=== PATIENT | female | born 1935 | race Caucasian/White ===

== ENCOUNTER 2017-10-22 11:46 | Observation (INO) ==
--- NOTE | 2017-10-22 12:05 | Emergency Department Note ---
Disposition Clinical Impression: Chest pain Qualifiers: Chest pain type: unspecified Qualified Code(s): R07.9 - Chest pain, unspecified Dyspnea Qualifiers: Dyspnea type: unspecified Qualified Code(s): R06.00 - Dyspnea, unspecified Pacemaker complications Qualifiers: Encounter type: initial encounter Qualified Code(s): T82.9XXA - Unspecified complication of cardiac and vascular prosthetic device, implant and graft, initial encounter Disposition: Admitted As Inpatient Condition: Fair Referrals: Salomon Cazares [Primary Care Provider] - Forms: ED Satisfaction Letter Time of Disposition: 15:24 Recheck wound or abnormal lab - General Chief Complaint: ED Recheck/Abnormal Lab/Rx Stated Complaint: "abnormal labs" Time Seen by Provider: 10/22/17 12:01 Source: patient Mode of arrival: ambulatory Limitations: no limitations Nursing Notes Reviewed: Yes Vital Signs Reviewed: Yes - History of Present Illness HPI Narrative: Patient is an 82-year-old female with past medical history of hypertension, hyperlipidemia, diabetes, CHF. She presents today due to the elevated creatinine levels. She states that [facility] She says that she was [facility] around one week ago for UTI. She was recently discharged. She has been feeling generally weak, has had multiple falls but denies any dizziness or extremity weakness, has also had diarrhea over the past week but states that it has now resolved. She also did note some blood in her stool but states that it has also resolved within the past week. Denies any dysuria, hematuria, vaginal bleeding or discharge. Denies any focal numbness, tingling, weakness. She states that she had basic labs drawn today and was told that her creatinine level was elevated. She does have a history of CKD. Not currently on dialysis. She also does report chest pain and shortness of breath that have been intermittent over the past month, no worsening with exertion, described as a pressure in the center of her chest with no radiation, no associated sweating , nausea, vomiting when these episodes occur. She does have a history of COPD and CHF and wears 3 L nasal cannula chronically. Denies any productive cough, fevers, sputum production. - Related Data Home Medications Medication Instructions Recorded Confirmed Acetaminophen [Tylenol] 500 mg PO Q4H PRN 07/23/15 08/30/15 Allopurinol [Zyloprim 100 MG] 200 mg PO DAILY 07/23/15 08/30/15 Atorvastatin [Lipitor] 10 mg PO HS 07/23/15 08/30/15 Biotin 300 mcg PO DAILY 07/23/15 08/30/15 Buspirone HCl [Buspar] 10 mg PO TID 07/23/15 08/30/15 Calcium Carbonate/Vitamin D3 1 tab PO DAILY 07/23/15 08/30/15 [Calcium 500-Vit D3 400 Tablet] Cholecalciferol (Vitamin D3) 2,000 unit PO DAILY 07/23/15 08/30/15 [Vitamin D3] Diclofenac Sodium [Voltaren] 1 appl TP PRN PRN 07/23/15 08/30/15 Duloxetine HCl [Cymbalta] 120 mg PO DAILY 07/23/15 08/30/15 Ferrous Sulfate [Iron Supplement] 325 mg PO TID 07/23/15 08/30/15 Fluticasone Propionate Nasal 2 spr NS DAILY 07/23/15 08/30/15 [Flonase] Furosemide [Lasix] 20 mg PO BID 07/23/15 08/30/15 Gabapentin [Neurontin] 1,200 mg PO TID 07/23/15 08/30/15 Insulin Human Regular [HumuLIN R] 2 - 10 unit SQ TID 07/23/15 08/30/15 Insulin NPH, HUMAN [HumuLIN N] 50 unit SQ QAM 07/23/15 08/30/15 Ipratropium/Albuterol Neb [Duoneb] 3 ml IH Q4HR PRN 07/23/15 08/30/15 Lactulose 30 ml PO DAILY 07/23/15 08/30/15 Magnesium Hydroxide [Milk of 30 ml PO DAILY PRN 07/23/15 08/30/15 Magnesia] Metoprolol XL (24 HR) Succ [Toprol 25 mg PO DAILY 07/23/15 08/30/15 Xl] Oxybutynin Chloride [Ditropan Xl] 10 mg PO DAILY 07/23/15 08/30/15 Sennosides [Senna] 17.2 mg PO DAILY 07/23/15 08/30/15 Tizanidine HCl [Zanaflex] 4 mg PO TID PRN 07/23/15 08/30/15 cloNIDine HCl [CloNIDine HCl] 0.1 mg PO BID 07/23/15 08/30/15 Previous Rx's Medication Instructions Recorded DiphenhydraMINE [Benadryl] 25 mg PO Q6HR PRN #0 capsule 09/04/15 Insulin LISPRO [HumaLOG] 0 units SQ TIDAC vial 09/04/15 Insulin LISPRO [HumaLOG] 6 units SQ TIDWM vial 09/04/15 OxyCODONE Immed Rel [Roxicodone 5 10 mg PO Q6HR PRN #14 tablet 09/04/15 MG] Allergies Allergy/AdvReac Type Severity Reaction Status Date / Time codeine AdvReac See Verified 06/02/15 08:41 Comments tuberculin,PPD,multi-puncture AdvReac See Verified 08/30/15 16:23 Comments All systems ED: reviewed and negative except as stated. Constitutional: Denies: fever Past Medical History - Past Medical History Attestation: Yes The following information was validated with the patient. Source: patient Medical history: Reports: arthritis, CHF, COPD, coronary artery disease, diabetes, hyperlipidemia, hypertension, renal disease, other (Morbid obesity, bipolar, sleep apnea) Surgical history: Reports: appendectomy, cataract, herniorrhaphy, hysterectomy, knee replacement, pacemaker/AICD, other (intra-thecal pain pump insertion ) Psychiatric history: Reports: anxiety, bipolar - Social History Smoking Status: Never smoker Smokeless Tobacco Status: No Alcohol use: Reports: none Drug use: Reports: none Physical Exam - General Limitations: no limitations General appearance: alert, in no apparent distress - Head Head exam: atraumatic, normocephalic, normal inspection - Eye Eye exam: Present: normal appearance, PERRL, EOMI - ENT ENT exam: normal oropharynx, mucous membranes dry - Neck Neck exam: Present: normal inspection, full ROM, trachea midline - Chest Chest inspection: Present: normal inspection, symmetric chest wall rise - Respiratory Respiratory exam: Present: normal lung sounds bilaterally - Cardiovascular Cardiovascular exam: Present: regular rate, normal rhythm, normal heart sounds - Abdominal Exam Abdominal exam: Present: soft, tenderness (very mild bilateral LQ tenderness). Absent: distention, guarding, rebound, rigidity - Extremities Exam Extremities exam: Present: normal inspection, full ROM. Absent: tenderness, pedal edema - Neurological Exam Neurological exam: Present: alert, oriented X3 - Expanded Neurological Exam Cranial nerves: EOM function (II, III, IV, ): Normal, facial sensation (V): Normal, facial palsy (VII): Normal, spinal accessory function (XI): Normal, tongue deviation (XII): Normal Motor strength - LUE: 5/5 Motor strength - RUE: 5/5 Motor strength - LLE: 5/5 Motor strength - RLE: 5/5 Sensory exam upper extremity: light touch: Normal Sensory exam lower extremity: light touch: Normal Coma Scale Eye Opening: Spontaneous Coma Scale Motor Response: Obeys Commands Coma Scale Verbal Response: Oriented Coma Scale Total: 15 - Psychiatric Psychiatric exam: Present: normal affect, normal mood - Skin Skin exam: Present: warm, dry, intact, normal color Course Course Narrative: Will perform EKG, chest x-ray, troponin, basic labs, urinalysis. We will check his old records from [facility]. We will give the patient aspirin. We will consult nephrology wants labs come back. 14:00 patient labs show creatinine and chronic anemia near baseline for the patient. No major likely abnormality. Troponin negative. Chest x-ray negative for any acute cardio pulmonary process, there is some central vascular congestion. We got called into the room because of an episode of "v tach". However, it looks as though each QRS has a pacer spike beforehand and is at a rate of 100. She is having some chest discomfort and shortness of breath during this episode. This lasted for a few minutes and then pacer is no longer capturing and she is back at normal sinus rhythm with a rate between 50-60. Currently concern that pacer is not functioning correctly. 14:[address] Caputo. He recommended interrogating the pacemaker has been calling him back with results. He will act as consult to the patient if there are admitted. 15:[address] Caputo. According to and irrigation, there is no detection Sunday, there was a dissection on October 09 of under sensing and high rates. I discussed this again with Dr. Caputo and he is agreeable with admission here. Patient was accepted by Dr. Craven. Chest X-Ray 10/22/17 12:21 IMPRESSION: Cardiomegaly with central vascular congestion. D/ / Beni Gonsalez MD / Beni Gonsalez MD Interpreting Provider: Beni Gonsalez MD Vital Signs Temperature 98.6 F 10/22/17 11:56 Pulse Rate 62 10/22/17 11:56 Respiratory Rate 12 10/22/17 11:56 Blood Pressure 175/97 10/22/17 11:56 O2 Sat by Pulse Oximetry 99 10/22/17 11:56 Temperature 98.6 F 10/22/17 12:13 Pulse Rate 64 10/22/17 14:21 Respiratory Rate 14 10/22/17 14:21 Blood Pressure 159/76 10/22/17 14:21 O2 Sat by Pulse Oximetry 97 10/22/17 14:21 Oxygen Delivery Oxygen Delivery Room Air Recheck wound or abnormal lab - MDM Narrative Medical decision making narrative: Will perform EKG, chest x-ray, troponin, basic labs, urinalysis. We will check his old records from [facility]. We will give the patient aspirin. We will consult nephrology wants labs come back. 14:00 patient labs show creatinine and chronic anemia near baseline for the patient. No major likely abnormality. Troponin negative. Chest x-ray negative for any acute cardio pulmonary process, there is some central vascular congestion. We got called into the room because of an episode of "v tach". However, it looks as though each QRS has a pacer spike beforehand and is at a rate of 100. She is having some chest discomfort and shortness of breath during this episode. This lasted for a few minutes and then pacer is no longer capturing and she is back at normal sinus rhythm with a rate between 50-60. Currently concern that pacer is not functioning correctly. 14:[address] Cpauto. He recommended interrogating the pacemaker has been calling him back with results. He will act as consult to the patient if there are admitted. 15:[address] Caputo. According to and irrigation, there is no detection Sunday, there was a dissection on October 09 of under sensing and high rates. I discussed this again with Dr. Caputo and he is agreeable with admission here. Patient was accepted by Dr. Craven. - Medical Records Medical records reviewed: Yes I reviewed the patient's medical records. - Lab Data Lab results reviewed: Yes I reviewed the patient's lab results. Result diagrams: 10/22/17 12:26 10/22/17 12:26 Lab Results 10/22/17 10/22/17 10/22/17 Range/Units 12:19 12:26 12:26 WBC 13.6 H (4.3-11.1) K/mcL RBC 3.47 L (3.82-4.97) M/mcL Hgb 10.5 L (11.5-15.4) g/dL Hct 33.3 L (35.3-44.9) % MCV 96.0 (83.0-100.0) fL MCH 30.3 (28.0-33.3) pg MCHC 31.5 L (31.6-35.5) g/dL RDW 14.2 (11.5-14.5) % Plt Count 449 H (140-400) K/mcL MPV 8.7 L (9.4-12.4) fL Seg Neutrophils % 94.0 % Lymphocytes % 3.0 % Monocytes % 3.0 % Neutrophils # 12.8 H (1.6-8.9) K/mcL Lymphocytes # 0.4 L (0.6-4.6) K/mcL Monocytes # 0.4 (0.0-1.3) K/mcL Nucleated RBCs/100 WBC 0.1 H (0) /100 WBC Platelet Estimate Slight increase H (Normal) PT 24.9 H (9.4-12.1) Seconds INR 2.2 APTT 44.2 H (26.0-36.0) Seconds Sodium (136-145) mEq/L Potassium (3.5-5.1) mEq/L Chloride (98-107) mEq/L Carbon Dioxide (23-29) mEq/L BUN (8-23) mg/dL Creatinine (0.60-1.20) mg/dL Est GFR ( Amer) (> 60) Est GFR (Non-Af Amer) (> 60) BUN/Creatinine Ratio (6-26) Glucose (70-105) mg/dL Calculated Osmolality (280-300) Calcium (8.6-10.3) mg/dL Total Bilirubin (0.3-1.0) mg/dL Direct Bilirubin (0.0-0.2) mg/dL Indirect Bilirubin (0.0-1.2) mg/dL AST (13-39) Units/L ALT (7-52) Units/L Alkaline Phosphatase (34-104) Units/L Troponin I (< 0.04) ng/mL B-Natriuretic Peptide (Less than 100) pg/mL Serum Total Protein (6.4-8.9) g/dL Albumin (3.5-5.7) g/dL Globulin (2.4-3.5) g/dL Albumin/Globulin Ratio (1.1-2.2) Lipase (11-82) Units/L Urine Color Yellow (Yellow) Urine Clarity Clear (Clear) Urine pH 6.5 (5.0-8.0) pH Units Ur Specific [place] 1.006 L (1.010-1.025) Urine Protein Trace (Neg-Trace) mg/dL Urine Glucose (UA) Normal (Normal) mg/dL Urine Ketones Negative (Negative) mg/dL Urine Blood Trace H (Negative) Urine Nitrite Negative (Negative) Urine Bilirubin Negative (Negative) Urine Urobilinogen Normal (Normal) mg/dL Ur Leukocyte Esterase Negative (Negative) Urine Microscopic RBC 0-3 (0-3) per hpf Urine Microscopic WBC 0-3 (0-3) per hpf Ur Squamous Epith Cells Moderate H (None-Few) per lpf Urine Bacteria None Seen (None-Few) per hpf Hyaline Casts None Seen (None-Few) per lpf Ur Culture Indicated? NO (NO) 10/22/17 10/22/17 Range/Units 12:26 12:26 WBC (4.3-11.1) K/mcL RBC (3.82-4.97) M/mcL Hgb (11.5-15.4) g/dL Hct (35.3-44.9) % MCV (83.0-100.0) fL MCH (28.0-33.3) pg MCHC (31.6-35.5) g/dL RDW (11.5-14.5) % Plt Count (140-400) K/mcL MPV (9.4-12.4) fL Seg Neutrophils % % Lymphocytes % % Monocytes % % Neutrophils # (1.6-8.9) K/mcL Lymphocytes # (0.6-4.6) K/mcL Monocytes # (0.0-1.3) K/mcL Nucleated RBCs/100 WBC (0) /100 WBC Platelet Estimate (Normal) PT (9.4-12.1) Seconds INR APTT (26.0-36.0) Seconds Sodium 139 (136-145) mEq/L Potassium 4.1 (3.5-5.1) mEq/L Chloride 101 (98-107) mEq/L Carbon Dioxide 34 H (23-29) mEq/L BUN 24 H (8-23) mg/dL Creatinine 1.60 H (0.60-1.20) mg/dL Est GFR ( Amer) 38 L (> 60) Est GFR (Non-Af Amer) 31 L (> 60) BUN/Creatinine Ratio 15 (6-26) Glucose 163 H (70-105) mg/dL Calculated Osmolality 296 (280-300) Calcium 9.2 (8.6-10.3) mg/dL Total Bilirubin 0.3 (0.3-1.0) mg/dL Direct Bilirubin 0.1 (0.0-0.2) mg/dL Indirect Bilirubin 0.2 (0.0-1.2) mg/dL AST 17 (13-39) Units/L ALT 19 (7-52) Units/L Alkaline Phosphatase 95 (34-104) Units/L Troponin I < 0.03 (< 0.04) ng/mL B-Natriuretic Peptide 275 H (Less than 100) pg/mL Serum Total Protein 7.0 (6.4-8.9) g/dL Albumin 3.0 L (3.5-5.7) g/dL Globulin 4.0 H (2.4-3.5) g/dL Albumin/Globulin Ratio 0.8 L (1.1-2.2) Lipase 7 L (11-82) Units/L Urine Color (Yellow) Urine Clarity (Clear) Urine pH (5.0-8.0) pH Units Ur Specific Underwood (1.010-1.025) Urine Protein (Neg-Trace) mg/dL Urine Glucose (UA) (Normal) mg/dL Urine Ketones (Negative) mg/dL Urine Blood (Negative) Urine Nitrite (Negative) Urine Bilirubin (Negative) Urine Urobilinogen (Normal) mg/dL Ur Leukocyte Esterase (Negative) Urine Microscopic RBC (0-3) per hpf Urine Microscopic WBC (0-3) per hpf Ur Squamous Epith Cells (None-Few) per lpf Urine Bacteria (None-Few) per hpf Hyaline Casts (None-Few) per lpf Ur Culture Indicated? (NO) - Radiology Data Radiology results reviewed: Yes I reviewed the patient's radiology results. Chest X-Ray 10/22/17 12:21 IMPRESSION: Cardiomegaly with central vascular congestion. D/ / Beni Gonsalez MD / Beni Gonsalez MD Interpreting Provider: Beni Gonsalez MD - EKG Data EKG attestation: Yes I reviewed and interpreted this EKG. EKG results narrative: 10/22/17. Paced rhythm. Heart rate 63. PO2 90. QTC 458. No acute ST elevation or depression. S.B.A.R. - S.B.A.R. Situation: Demographics, MOA Background: Presenting Complaint, Relevant PMH, Meds, & Allergies Assessment: Vital Signs, Course and respsone to treatment, Exam Concerns, Patient/Family Expectation, Pertinant Lab Results Recommendation: Barrier(s) to disposition, Recommendation based on pending studies, treatments, or consults S.B.A.R. Report Given to: Dr. Craven
[2017-10-22] MEDS ORDERED: Aspirin 325 MG TABLET PO ONE (12:32)
[2017-10-22 12:42] LABS: Bilirubin,Urine Negative (Negative); Blood,Urine Trace (Negative); Clarity,Urine Clear (Clear); Color,Urine Yellow (Yellow); Glucose,Urine (UA) Normal (Normal); Ketones,Urine Negative (Negative); Leukocyte Esterase,Urine Negative (Negative); Nitrite,Urine Negative (Negative); PH,Urine 6.5 pH Units (5.0-8.0); Protein,Urine Trace mg/dL (Neg-Trace); Specific Gravity,Urine 1.006 (1.010-1.025); Urobilinogen,Urine Normal (Normal)
[2017-10-22 12:42] LABS: Hematocrit 33.3 % (35.3-44.9); Hemoglobin 10.5 g/dL (11.5-15.4); Mean Corpuscular HGB Conc 31.5 g/dL (31.6-35.5); Mean Corpuscular Hemoglobin 30.3 pg (28.0-33.3); Mean Platelet Volume 8.7 fL (9.4-12.4); Nucleated Red Blood Cells 0.1 /100 WBC (0); Platelet Count 449 K/mcL (140-400); Red Blood Count 3.47 M/mcL (3.82-4.97); Red Cell Distribution Width 14.2 % (11.5-14.5)
[2017-10-22 12:44] LABS: Bacteria,Urine None Seen per hpf (None-Few); Hyaline Casts,Urine None Seen per lpf (None-Few); RBC,Urine 0-3 per hpf (0-3); Squamous Epithelial Cell,Urine Moderate per lpf (None-Few); WBC,Urine 0-3 per hpf (0-3)
[2017-10-22 12:45] LABS: INR 2.2; Prothrombin Time 24.9 Seconds (9.4-12.1)
[2017-10-22 12:48] LABS: Activated Partial Thrombo Time 44.2 Seconds (26.0-36.0)
[2017-10-22 12:58] LABS: Troponin I < 0.03 ng/mL (< 0.04)
[2017-10-22 13:00] LABS: Alanine Aminotransferase 19 Units/L (7-52); Albumin/Globulin Ratio 0.8 (1.1-2.2); Alkaline Phosphatase 95 Units/L (34-104); Aspartate Amino Transferase 17 Units/L (13-39); BUN/Creatinine Ratio 15 (6-26); Bilirubin,Direct 0.1 mg/dL (0.0-0.2); Bilirubin,Indirect 0.2 mg/dL (0.0-1.2); Bilirubin,Total 0.3 mg/dL (0.3-1.0); Blood Urea Nitrogen 24 mg/dL (8-23); Calcium 9.2 mg/dL (8.6-10.3); Carbon Dioxide 34 mEq/L (23-29); Chloride 101 mEq/L (98-107); Glucose 163 mg/dL (70-105); Lipase 7 Units/L (11-82); Osmolality,Calculated 296 (280-300); Potassium 4.1 mEq/L (3.5-5.1); Sodium 139 mEq/L (136-145); eGFR For Non-African Americans 31 (> 60)
[2017-10-22 13:02] LABS: Lymphocytes # 0.4 K/mcL (0.6-4.6); Monocytes # 0.4 K/mcL (0.0-1.3); Neutrophils # 12.8 K/mcL (1.6-8.9)
[2017-10-22] MEDS ORDERED: *HR* FentaNYL (PF) 100 MCG/2 ML VIAL IVP ONE (13:44)
--- NOTE | 2017-10-22 15:23 | Emergency Department Note ---
Disposition Clinical Impression: Dysrhythmia, Dyspnea Disposition: Admitted As Inpatient Condition: Fair Referrals: Salomon Cazares [Non-Partnered Physician] - Forms: ED Satisfaction Letter General Adult HPI - General Chief complaint: ED Recheck/Abnormal Lab/Rx Stated complaint: "abnormal labs" Time Seen by Provider: 10/22/17 12:01 Source: patient Mode of arrival: ambulatory Limitations: no limitations Nursing Notes Reviewed: Yes Vital Signs Reviewed: Yes - History of Present Illness Pain Scale: 0 - Related Data Home Medications Medication Instructions Recorded Confirmed Acetaminophen [Tylenol] 500 mg PO Q4H PRN 07/23/15 08/30/15 Allopurinol [Zyloprim 100 MG] 200 mg PO DAILY 07/23/15 08/30/15 Atorvastatin [Lipitor] 10 mg PO HS 07/23/15 08/30/15 Biotin 300 mcg PO DAILY 07/23/15 08/30/15 Buspirone HCl [Buspar] 10 mg PO TID 07/23/15 08/30/15 Calcium Carbonate/Vitamin D3 1 tab PO DAILY 07/23/15 08/30/15 [Calcium 500-Vit D3 400 Tablet] Cholecalciferol (Vitamin D3) 2,000 unit PO DAILY 07/23/15 08/30/15 [Vitamin D3] Diclofenac Sodium [Voltaren] 1 appl TP PRN PRN 07/23/15 08/30/15 Duloxetine HCl [Cymbalta] 120 mg PO DAILY 07/23/15 08/30/15 Ferrous Sulfate [Iron Supplement] 325 mg PO TID 07/23/15 08/30/15 Fluticasone Propionate Nasal 2 spr NS DAILY 07/23/15 08/30/15 [Flonase] Furosemide [Lasix] 20 mg PO BID 07/23/15 08/30/15 Gabapentin [Neurontin] 1,200 mg PO TID 07/23/15 08/30/15 Insulin Human Regular [HumuLIN R] 2 - 10 unit SQ TID 07/23/15 08/30/15 Insulin NPH, HUMAN [HumuLIN N] 50 unit SQ QAM 07/23/15 08/30/15 Ipratropium/Albuterol Neb [Duoneb] 3 ml IH Q4HR PRN 07/23/15 08/30/15 Lactulose 30 ml PO DAILY 07/23/15 08/30/15 Magnesium Hydroxide [Milk of 30 ml PO DAILY PRN 07/23/15 08/30/15 Magnesia] Metoprolol XL (24 HR) Succ [Toprol 25 mg PO DAILY 07/23/15 08/30/15 Xl] Oxybutynin Chloride [Ditropan Xl] 10 mg PO DAILY 07/23/15 08/30/15 Sennosides [Senna] 17.2 mg PO DAILY 07/23/15 08/30/15 Tizanidine HCl [Zanaflex] 4 mg PO TID PRN 07/23/15 08/30/15 cloNIDine HCl [CloNIDine HCl] 0.1 mg PO BID 07/23/15 08/30/15 Previous Rx's Medication Instructions Recorded DiphenhydraMINE [Benadryl] 25 mg PO Q6HR PRN #0 capsule 09/04/15 Insulin LISPRO [HumaLOG] 0 units SQ TIDAC vial 09/04/15 Insulin LISPRO [HumaLOG] 6 units SQ TIDWM vial 09/04/15 OxyCODONE Immed Rel [Roxicodone 5 10 mg PO Q6HR PRN #14 tablet 09/04/15 MG] Allergies Allergy/AdvReac Type Severity Reaction Status Date / Time codeine AdvReac See Verified 06/02/15 08:41 Comments tuberculin,PPD,multi-puncture AdvReac See Verified 08/30/15 16:23 Comments Constitutional: Denies: fever Past Medical History - Past Medical History Medical history: Reports: arthritis, CHF, COPD, coronary artery disease, diabetes, hyperlipidemia, hypertension, renal disease, other (Morbid obesity, bipolar, sleep apnea) Surgical history: Reports: appendectomy, cataract, herniorrhaphy, hysterectomy, knee replacement, pacemaker/AICD, other (intra-thecal pain pump insertion ) Psychiatric history: Reports: anxiety, bipolar - Social History Smoking Status: Never smoker Smokeless Tobacco Status: No Alcohol use: Reports: none Drug use: Reports: none Physical Exam - General Limitations: no limitations General appearance: alert, in no apparent distress Course Vital Signs Temperature 98.6 F 10/22/17 11:56 Pulse Rate 62 10/22/17 11:56 Respiratory Rate 12 10/22/17 11:56 Blood Pressure 175/97 10/22/17 11:56 O2 Sat by Pulse Oximetry 99 08/20/18 11:56 Temperature 98.6 F 10/22/17 12:13 Pulse Rate 64 10/22/17 14:21 Respiratory Rate 14 10/22/17 14:21 Blood Pressure 159/76 10/22/17 14:21 O2 Sat by Pulse Oximetry 97 10/22/17 14:21 Oxygen Delivery Oxygen Delivery Room Air Medical Decision Making - Lab Data Result diagrams: 10/22/17 12:26 10/22/17 12:26 Lab Results 10/22/17 10/22/17 10/22/17 Range/Units 12:19 12:26 12:26 WBC 13.6 H (4.3-11.1) K/mcL RBC 3.47 L (3.82-4.97) M/mcL Hgb 10.5 L (11.5-15.4) g/dL Hct 33.3 L (35.3-44.9) % MCV 96.0 (83.0-100.0) fL MCH 30.3 (28.0-33.3) pg MCHC 31.5 L (31.6-35.5) g/dL RDW 14.2 (11.5-14.5) % Plt Count 449 H (140-400) K/mcL MPV 8.7 L (9.4-12.4) fL Seg Neutrophils % 94.0 % Lymphocytes % 3.0 % Monocytes % 3.0 % Neutrophils # 12.8 H (1.6-8.9) K/mcL Lymphocytes # 0.4 L (0.6-4.6) K/mcL Monocytes # 0.4 (0.0-1.3) K/mcL Nucleated RBCs/100 WBC 0.1 H (0) /100 WBC Platelet Estimate Slight increase H (Normal) PT 24.9 H (9.4-12.1) Seconds INR 2.2 APTT 44.2 H (26.0-36.0) Seconds Sodium (136-145) mEq/L Potassium (3.5-5.1) mEq/L Chloride (98-107) mEq/L Carbon Dioxide (23-29) mEq/L BUN (8-23) mg/dL Creatinine (0.60-1.20) mg/dL Est GFR ( Amer) (> 60) Est GFR (Non-Af Amer) (> 60) BUN/Creatinine Ratio (6-26) Glucose (70-105) mg/dL Calculated Osmolality (280-300) Calcium (8.6-10.3) mg/dL Total Bilirubin (0.3-1.0) mg/dL Direct Bilirubin (0.0-0.2) mg/dL Indirect Bilirubin (0.0-1.2) mg/dL AST (13-39) Units/L ALT (7-52) Units/L Alkaline Phosphatase (34-104) Units/L Troponin I (< 0.04) ng/mL B-Natriuretic Peptide (Less than 100) pg/mL Serum Total Protein (6.4-8.9) g/dL Albumin (3.5-5.7) g/dL Globulin (2.4-3.5) g/dL Albumin/Globulin Ratio (1.1-2.2) Lipase (11-82) Units/L Urine Color Yellow (Yellow) Urine Clarity Clear (Clear) Urine pH 6.5 (5.0-8.0) pH Units Ur Specific [place] 1.006 L (1.010-1.025) Urine Protein Trace (Neg-Trace) mg/dL Urine Glucose (UA) Normal (Normal) mg/dL Urine Ketones Negative (Negative) mg/dL Urine Blood Trace H (Negative) Urine Nitrite Negative (Negative) Urine Bilirubin Negative (Negative) Urine Urobilinogen Normal (Normal) mg/dL Ur Leukocyte Esterase Negative (Negative) Urine Microscopic RBC 0-3 (0-3) per hpf Urine Microscopic WBC 0-3 (0-3) per hpf Ur Squamous Epith Cells Moderate H (None-Few) per lpf Urine Bacteria None Seen (None-Few) per hpf Hyaline Casts None Seen (None-Few) per lpf Ur Culture Indicated? NO (NO) 10/22/17 10/22/17 Range/Units 12:26 12:26 WBC (4.3-11.1) K/mcL RBC (3.82-4.97) M/mcL Hgb (11.5-15.4) g/dL Hct (35.3-44.9) % MCV (83.0-100.0) fL MCH (28.0-33.3) pg MCHC (31.6-35.5) g/dL RDW (11.5-14.5) % Plt Count (140-400) K/mcL MPV (9.4-12.4) fL Seg Neutrophils % % Lymphocytes % % Monocytes % % Neutrophils # (1.6-8.9) K/mcL Lymphocytes # (0.6-4.6) K/mcL Monocytes # (0.0-1.3) K/mcL Nucleated RBCs/100 WBC (0) /100 WBC Platelet Estimate (Normal) PT (9.4-12.1) Seconds INR APTT (26.0-36.0) Seconds Sodium 139 (136-145) mEq/L Potassium 4.1 (3.5-5.1) mEq/L Chloride 101 (98-107) mEq/L Carbon Dioxide 34 H (23-29) mEq/L BUN 24 H (8-23) mg/dL Creatinine 1.60 H (0.60-1.20) mg/dL Est GFR ( Amer) 38 L (> 60) Est GFR (Non-Af Amer) 31 L (> 60) BUN/Creatinine Ratio 15 (6-26) Glucose 163 H (70-105) mg/dL Calculated Osmolality 296 (280-300) Calcium 9.2 (8.6-10.3) mg/dL Total Bilirubin 0.3 (0.3-1.0) mg/dL Direct Bilirubin 0.1 (0.0-0.2) mg/dL Indirect Bilirubin 0.2 (0.0-1.2) mg/dL AST 17 (13-39) Units/L ALT 19 (7-52) Units/L Alkaline Phosphatase 95 (34-104) Units/L Troponin I < 0.03 (< 0.04) ng/mL B-Natriuretic Peptide 275 H (Less than 100) pg/mL Serum Total Protein 7.0 (6.4-8.9) g/dL Albumin 3.0 L (3.5-5.7) g/dL Globulin 4.0 H (2.4-3.5) g/dL Albumin/Globulin Ratio 0.8 L (1.1-2.2) Lipase 7 L (11-82) Units/L Urine Color (Yellow) Urine Clarity (Clear) Urine pH (5.0-8.0) pH Units Ur Specific [place] (1.010-1.025) Urine Protein (Neg-Trace) mg/dL Urine Glucose (UA) (Normal) mg/dL Urine Ketones (Negative) mg/dL Urine Blood (Negative) Urine Nitrite (Negative) Urine Bilirubin (Negative) Urine Urobilinogen (Normal) mg/dL Ur Leukocyte Esterase (Negative) Urine Microscopic RBC (0-3) per hpf Urine Microscopic WBC (0-3) per hpf Ur Squamous Epith Cells (None-Few) per lpf Urine Bacteria (None-Few) per hpf Hyaline Casts (None-Few) per lpf Ur Culture Indicated? (NO) Attestation Statement - Attestation Attestation: I, Johnson Fall, examined this patient and my medical decision-making was reviewed with the [employer]/PA/Advanced Practice Nurse/Resident Physician. I agree with the documented findings, disposition and treatment plan as described except to the extent set forth below. 82-year-old female presents emergency Department with concerns of "abnormal labs ". Patient was sent to the emergency department by Dr. Vanegas get her for further evaluation of possible worsening renal failure. INR reevaluation the emergency department the patient complained about intermittent chest pain and shortness of breath however she did not state that it was significantly worse within the past 24 hours. Laboratory evaluation showed a creatinine of 1.6 which is actually better than her previous laboratory values. During a reevaluation in the emergency Department she became short of breath and had chest pain, on the monitor she had what appeared to be a ventricularly paced rhythm. Patient did not feel the pacemaker and also did not feel being defibrillated. EKG shows a definitive change in the rhythm, showing a wide complex QRS consistent with a ventricularly paced rhythm which then improved to her baseline EKG when her symptoms resolved. Resident, Dr. Cade, spoke with the african history professor, Dr. Caputo, regarding the patient's case and presentation who agreed with the plan for admission to the hospital for further care and evaluation.
[2017-10-22] MEDS ORDERED: Naloxone 0.4 MG/ML INJ IVP PRN ×2 (17:28→18:24)
--- NOTE | 2017-10-22 17:54 | Internal Med History&Physical ---
<SchenectadyEster - Last Filed: 10/22/17 17:52> Date of Encounter: 10/22/17 Time of Encounter: 17:40 Internal Medicine - H&P: HPI Chief complaint: abnormal labs, chest pain Admitted From: Long-term Nursing Facility Plans for Post Hospital Care: [facility] History of present illness: Ms. Latif is a 82 year old female with past medical history of morbid obesity, sleep apnea, chronic kidney disease stage III, diabetes, bipolar disorder, COPD , pacemaker. Patient presented to the emergency department from her [facility]. She was sent to see her prep person. Nephrology felt that her renal function was worsening and was sent to the emergency department for evaluation. While in the emergency department, she began having chest pain with associated shortness of breath, diaphoresis, and nausea. Patient denies currently and apparently is back to baseline. She states that within the last week she has been admitted to another [facility] hospital in [place], [place] for UTI and is still getting IM injections of antibiotic. Pt denies nausea, vomiting, current chest pain, shortness of breath, peripheral edema, abdominal pain, or dizziness. She reports global headaches times one month intermittently. Past Med Surg Social Fam HX - Past Medical History Medical history: arthritis, CHF, COPD, coronary artery disease, diabetes, hyperlipidemia, hypertension, renal disease, other (Morbid obesity, bipolar, sleep apnea) Additional medical history: acute renal failure, lumbar DDD, dementia, angina, neuropathy, anemia, anxiety/depression,. bipolar, schizophrenia, pacemaker, sleep apnea with CPAP, left breast nodule, pneumonia Psychiatric history: anxiety, bipolar - Past Surgical History Surgical History: appendectomy, cataract, herniorrhaphy, hysterectomy, knee replacement, pacemaker/AICD, other (intra-thecal pain pump insertion 07/23/15) Additional surgical history: pain pump - Social History Smoking Status: Never smoker Smokeless Tobacco Status: No Alcohol use: none Drug use: none - Family History Brother Hx Family Endocrine Disorder: Yes Internal Medicine - H&P: Meds Acetaminophen [Tylenol] 500 mg PO Q4H PRN 07/23/15 [History] Allopurinol [Zyloprim 100 MG] 200 mg PO DAILY 07/23/15 [History] Atorvastatin [Lipitor] 10 mg PO HS 07/23/15 [History] Biotin 300 mcg PO DAILY 07/23/15 [History] Buspirone HCl [Buspar] 10 mg PO BID 07/23/15 [History] Cholecalciferol (Vitamin D3) [Vitamin D3] 2,000 unit PO DAILY 07/23/15 [History] Fluticasone Propionate Nasal [Flonase] 2 spr NS DAILY 07/23/15 [History] Gabapentin [Neurontin] 300 mg PO TID 07/23/15 [History] Insulin Human Regular [HumuLIN R] 2 - 10 unit SQ TID 07/23/15 [History] Insulin NPH, HUMAN [HumuLIN N] 55 unit SQ QAM 07/23/15 [History] Ipratropium/Albuterol Neb [Duoneb] 3 ml IH Q4HR PRN 07/23/15 [History] Lactulose 30 ml PO DAILY 07/23/15 [History] Magnesium Hydroxide [Milk of Magnesia] 30 ml PO DAILY PRN 07/23/15 [History] Metoprolol XL (24 HR) Succ [Toprol Xl] 50 mg PO DAILY 07/23/15 [History] Sennosides [Senna] 17.2 mg PO DAILY 07/23/15 [History] cloNIDine HCl [CloNIDine HCl] 0.1 mg PO BID 07/23/15 [History] Bupropion HCl [Wellbutrin Xl] 300 mg PO DAILY 10/22/17 [History] Docusate Sodium [Dok] 200 mg PO DAILY 10/22/17 [History] Ertapenem [INVanz] 1,000 mg IM DAILY 10/22/17 [History] Oxybutynin Chloride [Ditropan Xl] 10 mg PO DAILY 10/22/17 [History] Rivaroxaban [Xarelto] 15 mg PO DAILY 10/22/17 [History] Torsemide [Demadex] 20 mg PO DAILY 10/22/17 [History] 3 Allergy/AdvReac Type Severity Reaction Status Date / Time codeine AdvReac See Verified 06/02/15 08:41 Comments tuberculin,PPD,multi-puncture AdvReac See Verified 08/30/15 16:23 Comments All Systems PM: A 10-system review of systems was performed and is negative for pertinent findings except as documented above in the HPI. - Constitutional Constitutional: falls, no anorexia, no chills, no excessive sweating, no night sweats, no weakness - EENT Eyes: no blurry vision, no change in vision, no loss of vision, no photophobia Ears: no decreased hearing, no tinnitus Nose, mouth and throat: no dry mouth, no nasal congestion, no nasal discharge, no nasal obstruction, no sinus pressure, no sore throat - Cardiovascular Cardiovascular ROS IM: chest pain, diaphoresis, dyspnea, no lightheadedness, no palpitations, no syncope - Respiratory Respiratory: dyspnea, dyspnea on exertion, no pain on inspiration, no chest congestion - Gastrointestinal Gastrointestinal: diarrhea, nausea, no loose stools, no vomiting - Genitourinary Genitourinary: no urinary frequency, no urinary hesitancy, no urinary incontinence, no urinary urgency - Musculoskeletal Musculoskeletal ROS IM: no muscle weakness, no numbness, no tingling - Integumentary Integumentary IM: no new lesions, no rash - Neurological Neurological ROS: headache(s), no dizziness, no memory loss, no numbness, no restless legs, no tingling - Constitutional Vitals: Temp Pulse Resp BP Pulse Ox 98.3 F 65 16 142/94 90 10/22/17 17:46 10/22/17 17:46 10/22/17 17:46 10/22/17 17:46 10/22/17 17:46 General appearance: Present: cooperative, A&O X 3, morbidly obese, pleasant, no acute distress, answers questions appropriately Exam: As above - Head Head exam: Present: atraumatic, normocephalic - Eye Eye exam: Present: EOMI, normal appearance, conjuntiva pink, sclera anicteric. Absent: nystagmus - Neck Neck exam general surgery: Present: supple, trachea midline. Absent: lymphadenopathy, normal inspection, tenderness - Respiratory Respiratory exam: Present: CTAB. Absent: accessory muscle use, chest wall tenderness, rales, respiratory distress, rhonchi, wheezes - Cardiovascular Cardiovascular exam: Present: RRR, +S1, +S2. Absent: diastolic murmur, gallop, rubs, systolic murmur - GI/Abdominal GI/Abdominal exam: Present: distended, normal bowel sounds, soft. Absent: hepatomegaly, tenderness - Extremities Exam Extremities exam: Present: normal capillary refill, normal inspection, warm, radial pulses palpable and symmetrical. Absent: calf tenderness, cyanotic, pedal edema, tenderness - Neurological Exam Neurological exam: Present: alert, oriented X3, no focal deficits. Absent: facial droop, speech deficit - Skin Skin exam: Present: dry, intact, normal color, warm. Absent: rash Internal Med - H&P Results - Labs CBC & Chem 7: 10/22/17 12:26 10/22/17 12:26 - Assessment and plan (1) Chest pain Current Visit: Yes Status: Acute Assessment and plan: Pt reports substernal chest pain with radiation to left breast, left mid axillary area with associated shortness of breath, diaphoresis, nausea. Pt states that pain resolved with "a shot", which apparently was Fentanyl. Per ER note pt reported SOB and non-radiating chest pain that has been intermittent for a month, without diaphoresis, nausea, or vomiting. Per primary RN, CONTRACT ATTORNEY states that pt had a 1.5 minute run of v-tach, pacemaker was found to be malfunctioning. Cardiology has been consulted and will see pt tomorrow. Pt denies chest pain or associated symptoms. EKG NSR Continue telemetry Cardiology consult tomorrow Tylenol for pain Continue FLOR Chan, Lipitor EKG in a.m. Trend troponins Qualifiers: Chest pain type: unspecified Qualified Code(s): R07.9 - Chest pain, unspecified (2) Headache Current Visit: Yes Status: Acute Assessment and plan: Pt reports global headache with nausea and vomiting for 1 month. She denies vision changes or dizziness, no neurological deficits. Pt reports that she recently had CT at hospital in [place], [place]. We need to try to obtain records. Tylenol for pain Qualifiers: Headache type: unspecified Headache chronicity pattern: acute headache Intractability: not intractable Qualified Code(s): R51 - Headache (3) Pacemaker complications Current Visit: Yes Status: Acute Assessment and plan: Plan as above. Cardiology to see tomorrow. Qualifiers: Encounter type: initial encounter Qualified Code(s): T82.9XXA - Unspecified complication of cardiac and vascular prosthetic device, implant and graft, initial encounter (4) Bipolar disorder Current Visit: Yes Status: Acute Assessment and plan: Continue Buspar and Wellbutrin Follow up with psychiatry and PCP as scheduled. Qualifiers: Active/Remission status: remission status unspecified Qualified Code(s): F31.9 - Bipolar disorder, unspecified (5) COPD (chronic obstructive pulmonary disease) Current Visit: Yes Status: Acute Assessment and plan: NO acute exacerbation. Lungs clear, diminished. Pt is at baseline 02 demand. Continue Duonebs and 02, titrate to maintain sats > 92% Qualifiers: COPD type: unspecified COPD Qualified Code(s): J44.9 - Chronic obstructive pulmonary disease, unspecified (6) DVT prophylaxis Current Visit: Yes Status: Acute Assessment and plan: Pt on Xarelto (7) Insulin-requiring or dependent type II diabetes mellitus Current Visit: Yes Status: Acute Assessment and plan: Continue SSI, accuchecks achs, diabetic/cardiac diet. No recent A1c. Will draw with morning labs. (8) Morbid obesity due to excess calories Current Visit: Yes Status: Chronic Assessment and plan: Encourage lifestyle modifications and increase exercise. (9) Sleep apnea Current Visit: Yes Status: Chronic Assessment and plan: Continue Bipap. Qualifiers: Sleep apnea type: obstructive Qualified Code(s): G47.33 - Obstructive sleep apnea (adult) (pediatric) (10) CKD (chronic kidney disease) stage 3, GFR 30-59 ml/min Current Visit: Yes Status: Chronic Assessment and plan: Pt was sent to ED from nephrology office for worsening renal function. , appears to be at pt's baseline. Avoid nephrotoxins Monitor labs (11) HTN (hypertension) Current Visit: Yes Status: Acute Assessment and plan: Chronic. HOme medications have been restarted. Monitor labs per admission orders. Qualifiers: Hypertension type: unspecified Qualified Code(s): I10 - Essential (primary ) hypertension - Time Spent With Patient Total time spent is greater than 50% in coordination of care (as documented) at patient's floor/unit and/or counseling patient: less than 15 minutes <Su Craven - Last Filed: 10/22/17 18:50> Date of Encounter: 10/22/17 Internal Medicine - H&P: HPI History of present illness: Ms. Latif is a 82 year old female All Systems PM: A 10-system review of systems was performed and is negative for pertinent findings except as documented above in the HPI. - Constitutional Vitals: Temp Pulse Resp BP Pulse Ox 98.3 F 65 16 142/94 90 10/22/17 17:46 10/22/17 17:46 10/22/17 17:46 10/22/17 17:46 10/22/17 17:46 Internal Med - H&P Results - Labs CBC & Chem 7: 10/22/17 12:26 10/22/17 12:26 - Assessment and plan (1) Morbid obesity due to excess calories Current Visit: Yes Status: Chronic (2) Sleep apnea Current Visit: Yes Status: Chronic Qualifiers: Sleep apnea type: obstructive Qualified Code(s): G47.33 - Obstructive sleep apnea (adult) (pediatric) (3) Bipolar disorder Current Visit: Yes Status: Acute Qualifiers: Active/Remission status: remission status unspecified Qualified Code(s): F31.9 - Bipolar disorder, unspecified (4) Insulin-requiring or dependent type II diabetes mellitus Current Visit: Yes Status: Acute (5) COPD (chronic obstructive pulmonary disease) Current Visit: Yes Status: Acute Qualifiers: COPD type: unspecified COPD Qualified Code(s): J44.9 - Chronic obstructive pulmonary disease, unspecified (6) DVT prophylaxis Current Visit: Yes Status: Acute (7) Chest pain Current Visit: Yes Status: Acute Qualifiers: Chest pain type: unspecified Qualified Code(s): R07.9 - Chest pain, unspecified (8) Pacemaker complications Current Visit: Yes Status: Acute Qualifiers: Encounter type: initial encounter Qualified Code(s): T82.9XXA - Unspecified complication of cardiac and vascular prosthetic device, implant and graft, initial encounter (9) Headache Current Visit: Yes Status: Acute Qualifiers: Headache type: unspecified Headache chronicity pattern: acute headache Intractability: not intractable Qualified Code(s): R51 - Headache (10) CKD (chronic kidney disease) stage 3, GFR 30-59 ml/min Current Visit: Yes Status: Chronic (11) HTN (hypertension) Current Visit: Yes Status: Acute Qualifiers: Hypertension type: unspecified Qualified Code(s): I10 - Essential (primary ) hypertension - Time Spent With Patient Total time spent is greater than 50% in coordination of care (as documented) at patient's floor/unit and/or counseling patient: - Attending Attestation I have seen and examined this pt independently. I have discussed with RETAIL SHIFT SUPERVISOR Ms Bright regarding the management plan. Agree with the documentation.
[2017-10-22] MEDS ORDERED: *HR* Dextrose 50 % in Water (Syg) 50 ML SYRINGE IVP PRN (18:30)
[2017-10-22] MEDS ORDERED: Dextrose Gel 15 GM/37.5 ML TUBE PO PRN ×2 (18:30)
[2017-10-22] MEDS ORDERED: D5% in Water 1,000 ML IVC PRN (18:30)
[2017-10-22] MEDS ORDERED: MOM Conc 10 ML UD.LIQ PO PRN (18:32)
[2017-10-22] MEDS: Insulin LISPRO 300 UNITS/3 ML VIAL SQ SCH (19:49)
[2017-10-22] MEDS ORDERED: Ipratropium/Albuterol Neb 3 ML IH PRN (20:00)
[2017-10-22] MEDS: Gabapentin 300 MG CAPSULE PO SCH (20:02)
[2017-10-22] MEDS: traMADol 50 MG TABLET PO PRN (20:02)
[2017-10-22] MEDS: cloNIDine HCl 0.1 MG TABLET PO SCH (20:03)
[2017-10-22] MEDS ORDERED: Insulin LISPRO 300 UNITS/3 ML VIAL SQ SCH (21:00)
[2017-10-22] MEDS: Acetaminophen 325 MG TABLET PO PRN (21:24)
[2017-10-23 02:10] LABS: Basophils # 0.1 K/mcL (0.0-0.2); Basophils % 0.4 %; Eosinophils # 0.4 K/mcL (0.0-0.6); Eosinophils % 2.7 %; Hematocrit 32.5 % (35.3-44.9); Hemoglobin 10.5 g/dL (11.5-15.4); Lymphocytes # 1.8 K/mcL (0.6-4.6); Lymphocytes % 13.5 %; Mean Corpuscular HGB Conc 32.3 g/dL (31.6-35.5); Mean Corpuscular Hemoglobin 30.7 pg (28.0-33.3); Mean Platelet Volume 8.9 fL (9.4-12.4); Monocytes # 0.6 K/mcL (0.0-1.3); Monocytes % 4.8 %; Neutrophils # 9.7 K/mcL (1.6-8.9); Platelet Count 432 K/mcL (140-400); Red Blood Count 3.42 M/mcL (3.82-4.97); Red Cell Distribution Width 14.2 % (11.5-14.5); Segmented Neutrophils % 74.6 %
[2017-10-23] MEDS: traMADol 50 MG TABLET PO PRN ×4 (02:32→22:38)
[2017-10-23 02:35] LABS: Calcium 9.2 mg/dL (8.6-10.3); Magnesium 1.7 mg/dL (1.6-2.6); Potassium 4.6 mEq/L (3.5-5.1)
[2017-10-23] MEDS ORDERED: Ketorolac 15 MG/ML VIAL IVP ONE (02:39)
[2017-10-23] MEDS: Insulin LISPRO 300 UNITS/3 ML VIAL SQ SCH ×4 (07:48→21:15)
[2017-10-23] MEDS: Sennosides 8.6 MG TABLET PO SCH (08:07)
[2017-10-23] MEDS: cloNIDine HCl 0.1 MG TABLET PO SCH ×2 (08:07→19:33)
[2017-10-23] MEDS: Gabapentin 300 MG CAPSULE PO SCH ×3 (08:08→19:33)
[2017-10-23] MEDS: BuPROPion XL (24 HR) 150 MG TABLET PO SCH (08:08)
[2017-10-23] MEDS: Cholecalciferol (D-3) 1,000 UNIT TABLET PO SCH (08:08)
[2017-10-23] MEDS: Lactulose Oral Soln 20 GM/30 ML UDC PO SCH (08:08)
[2017-10-23] MEDS: Torsemide 20 MG TABLET PO SCH (08:12)
[2017-10-23] MEDS: (Biotin [Biotin] 300 MCG) PO SCH (08:14)
[2017-10-23] MEDS ORDERED: Ertapenem 1,000 MG in 0.9 % Sodium Chloride Mini Bag 100 ML IVPB SCH (09:00)
[2017-10-23] MEDS ORDERED: Metoprolol XL (24 HR) Succ 50 MG TAB.ER.24H PO SCH (09:00)
[2017-10-23] MEDS ORDERED: *HR* Rivaroxaban 15 MG TABLET PO SCH (09:00)
[2017-10-23] MEDS ORDERED: Lactulose 200 GM/300 ML (for enema) RC SCH ×2 (09:00)
[2017-10-23] MEDS: Fluticasone Propionate Nasal 50 MCG/SPRAY BOTTLE NS SCH (10:11)
--- NOTE | 2017-10-23 11:01 | Cardiology Consult Note ---
Date of Encounter: 10/23/17 Time of Encounter: 10:50 Assessment and Plan (1) Chest pain Current Visit: Yes Status: Acute C/o reproducible chest wall pain. Suspect muscle skeletal pain. Troponin negative. EKG shows atrial pacing with no acute ST/T wave change. No prior history CAD. Continue to monitor. No further testing indicated from cardiac standpoint. Qualifiers: Chest pain type: unspecified Qualified Code(s): R07.9 - Chest pain, unspecified (2) Pacemaker complications Current Visit: Yes Status: Acute H/o PPM for sinus node dysfunction. PPM check reviewed with our director of plant operations. There are episodes of PAF with RVR since july. last episode was October 09. Atrial lead is undersensing during these episodes due to not sensing all of the a waves during afib and it is not mode switching. Better control of afib is recommended and out-pt f/u in device clinic for re- evaluation. Qualifiers: Encounter type: initial encounter Qualified Code(s): T82.9XXA - Unspecified complication of cardiac and vascular prosthetic device, implant and graft, initial encounter (3) Paroxysmal A-fib Current Visit: Yes Status: Acute Device check shows intermittent runs PAF with RVR since July 2017. Patient noted to be on xarelto already for unclear reason. She does not follow with [facility]. Continue xarelto for primary CVA prevention. Increase bb as tolerated. Toprol xl increased to 50 mg BID. NSR during stay. Out-pt f/u with cardiology will be established. Discussion w patient/family: The assessment and plan as outlined above was discussed with the patient and/or family members who expressed understanding and agreement. All questions were answered. Thank you for involving us in the care of your patient. Please call with any questions. History of Present Illness Consult date: 10/23/17 Requesting physician: Su Craven Consult reason: PPM lead issue Chief complaint: Declining kidney function History of present illness: Ms. Latif is a 82 year old female with past medical history of CKD stage III, COPD, DM type II, bipolar, GISELE, and sinus node dysfunction s/p PPM. She presents from [facility] when she was found to have declining renal function by her shuttleless loom weaver. While in the ED she c/o discomfort in her chest. C/o discomfort over her sternum that is reproducible. States "I thing I have a breast nodule there." She was reported to have possible run VT by RN. Device check was completed and showed no VT. Incidentally it did show occasional atrial tachycardia, most recently seen 10/09/17. She was also seen to have an atrial lead that was under-sensing. She denies dizziness or lightheadedness. Denies palpitations. SHe currently does not follow with anyone to monitor her pacemaker. Past Med Surg Social Fam HX - Past Medical History Medical history: arthritis, CHF, COPD, coronary artery disease, diabetes, hyperlipidemia, hypertension, renal disease, other Additional medical history: acute renal failure, lumbar DDD, dementia, angina, neuropathy, anemia, anxiety/depression,. bipolar, schizophrenia, pacemaker, sleep apnea with CPAP, left breast nodule, pneumonia Psychiatric history: anxiety, bipolar - Past Surgical History Surgical History: appendectomy, cataract, herniorrhaphy, hysterectomy, knee replacement, pacemaker/AICD, other Additional surgical history: pain pump - Social History Smoking Status: Never smoker Smokeless Tobacco Status: No Alcohol use: none Drug use: none - Family History Brother Hx Family Endocrine Disorder: Yes Medications and Allergies Acetaminophen [Tylenol] 500 mg PO Q4H PRN 07/23/15 [History] Allopurinol [Zyloprim 100 MG] 200 mg PO DAILY 07/23/15 [History] Atorvastatin [Lipitor] 10 mg PO HS 07/23/15 [History] Biotin 300 mcg PO DAILY 07/23/15 [History] Buspirone HCl [Buspar] 10 mg PO BID 07/23/15 [History] Cholecalciferol (Vitamin D3) [Vitamin D3] 2,000 unit PO DAILY 07/23/15 [History] Fluticasone Propionate Nasal [Flonase] 2 spr NS DAILY 07/23/15 [History] Gabapentin [Neurontin] 300 mg PO TID 07/23/15 [History] Insulin Human Regular [HumuLIN R] 2 - 10 unit SQ TID 07/23/15 [History] Insulin NPH, HUMAN [HumuLIN N] 55 unit SQ QAM 07/23/15 [History] Ipratropium/Albuterol Neb [Duoneb] 3 ml IH Q4HR PRN 07/23/15 [History] Lactulose 30 ml PO DAILY 07/23/15 [History] Magnesium Hydroxide [Milk of Magnesia] 30 ml PO DAILY PRN 07/23/15 [History] Metoprolol XL (24 HR) Succ [Toprol Xl] 50 mg PO DAILY 07/23/15 [History] Sennosides [Senna] 17.2 mg PO DAILY 07/23/15 [History] cloNIDine HCl [CloNIDine HCl] 0.1 mg PO BID 07/23/15 [History] Bupropion HCl [Wellbutrin Xl] 300 mg PO DAILY 10/22/17 [History] Docusate Sodium [Dok] 200 mg PO DAILY 10/22/17 [History] Ertapenem [INVanz] 1,000 mg IM DAILY 10/22/17 [History] Oxybutynin Chloride [Ditropan Xl] 10 mg PO DAILY 10/22/17 [History] Rivaroxaban [Xarelto] 15 mg PO DAILY 10/22/17 [History] Torsemide [Demadex] 20 mg PO DAILY 10/22/17 [History] 3 Allergy/AdvReac Type Severity Reaction Status Date / Time codeine AdvReac See Verified 06/02/15 08:41 Comments tuberculin,PPD,multi-puncture AdvReac See Verified 08/30/15 16:23 Comments All Systems Review: The remainder of the systems were reviewed and are negative Physical Examination General: Conversant, No Apparent Distress HEENT: Atraumatic, Normocephaly, Mucus Membranes Moist Neck: No JVD, Normal carotid pulses Cardiac: Reg Rate and Rhythm, Normal S1 and S2, No Murmur Lungs: Normal Breath Sounds, No Wheeze, Rales, Rhonchi Neuro: Alert and responsive, No focal deficits noted Abdomen: Soft, Non-Tender Skin: No rashes noted on visualized skin Musculoskeletal: Other (Reproducible chest wall tenderness) Extremities: No Clubbing, No Cyanosis, No Edema, Normal Pulses Results 10/23/17 01:01 10/23/17 01:01 Lab Results 10/22/17 10/23/17 10/23/17 18:53 01:01 01:01 WBC 13.0 H Hgb 10.5 L Hct 32.5 L Plt Count 432 H Sodium Potassium Chloride Carbon Dioxide BUN Creatinine Glucose Calcium Magnesium Troponin I < 0.03 < 0.03 10/23/17 01:01 WBC Hgb Hct Plt Count Sodium 139 Potassium 4.6 Chloride 101 Carbon Dioxide 32 H BUN 24 H Creatinine 1.57 H Glucose 163 H Calcium 9.2 Magnesium 1.7 Troponin I - Imaging and Cardiology Echo: pending - EKG Interpretation EKG results cardiology: personally reviewed Consult Discharge Plan - Plan Referrals: Salomon Cazares [Primary Care Provider] -
[2017-10-23] MEDS ORDERED: Artificial Tears SOLN 15 ML BOTTLE BOTH EYES PRN (12:18)
--- NOTE | 2017-10-23 14:36 | Internal Med Progress Note ---
Hospitalist Progress Note - Encounter Date of Encounter: 10/23/17 Time of Encounter: 14:32 - Subjective Interval History: Patient seen and examined at bedside today, no acute changes overnight. Continues to report intermittent chest pain with mild shortness of breath. Her primary concerns are regarding her renal function. She is concerned that she has continued to have a decline in renal function. At this time for serum creatinine remained stable however, she has not been seen at [facility] since 2016. In 2016 her renal function was approximately the same as during this admission. Plan of care was discussed, patient denies any further questions or verbalized understanding. - Exam Vitals: Temp Pulse Resp BP Pulse Ox 98.7 F 65 15 183/90 93 10/23/17 11:49 10/23/17 11:49 10/23/17 11:49 10/23/17 11:49 10/23/17 11:49 Exam: PHYSICAL EXAMINATION: GENERAL: The patient is an obese female in no apparent distress, she is alert and oriented to self and place, some mild confusion HEENT: Head is normocephalic and atraumatic. Extraocular muscles are intact. Pupils are equal, round, and reactive to light and accommodation. Nares appeared normal. Mouth is well hydrated and without lesions. Mucous membranes are moist. Posterior pharynx clear of any exudate or lesions. NECK: Supple. No carotid bruits. No lymphadenopathy or thyromegaly. LUNGS: Clear/diminished to auscultation. HEART: Regular rate and rhythm without murmur. ABDOMEN: Soft, nontender, and nondistended. Positive bowel sounds. No hepatosplenomegaly was noted. EXTREMITIES: Without any cyanosis, clubbing, rash, lesions or edema. NEUROLOGIC: Cranial nerves II through XII are grossly intact. SKIN: No ulceration or induration present. - Assessment and Plan (1) Chest pain Current Visit: Yes Status: Acute Assessment and Plan: Presented with substernal chest pain with radiation to left breast, left mid axillary area with associated shortness of breath, diaphoresis, nausea. She describes pressure as well stating "an elephant is sitting on my chest" Chest pain is somewhat reproducible, suspect musculoskeletal pain and serial troponins negative 3 less than 0.03 , EKG with atrial pacing without acute ST- T wave changes No prior history of CAD Has been having PAF with RVR per supervisor nutritional yeast evaluation of pacer, likely contributing Cardiology cardiology seeing in consultation-appreciate recommendations-- reporting no further testing indicated at this time Continue telemetry Tylenol for pain Continue FLOR Chan, Lipitor Consult to foster care social worker-patient to return to [facility] pending approval (2) Morbid obesity due to excess calories Current Visit: Yes Status: Chronic Assessment and Plan: Encourage lifestyle modifications, including diet and exercise (3) Sleep apnea Current Visit: Yes Status: Chronic Assessment and Plan: BiPAP as needed (4) Bipolar disorder Current Visit: Yes Status: Acute Assessment and Plan: Continue Buspar and Wellbutrin (5) Insulin-requiring or dependent type II diabetes mellitus Current Visit: Yes Status: Acute Assessment and Plan: Increase to medium SSI has fears to blood glucose continues to be elevated, accuchecks achs, diabetic/cardiac diet. No recent A1c. Will draw with morning labs. (6) COPD (chronic obstructive pulmonary disease) Current Visit: Yes Status: Acute Assessment and Plan: History of COPD, not in acute exacerbation. Lungs clear/diminished. Pt is at baseline 02 Continue Duonebs and 02, titrate to maintain sats > 92% (7) Pacemaker complications Current Visit: Yes Status: Acute Assessment and Plan: History of pacemaker for sinus node dysfunction Per supervisor nutritional yeast review episodes of PAF with RVR occurring intermittently since July 2017 Cardiology seeing in consultation-appreciate recommendations--recommendations are to proceed with outpatient follow-up in device clinic for reevaluation and to better control A. fib. Continue Xarelto, changing Toprol-XL to 50 mg twice a day Plan as above. Cardiology to see tomorrow. (8) Headache Current Visit: Yes Status: Resolved Assessment and Plan: Pt reports having intermittent global headache with nausea and vomiting for 1 month. She denies vision changes or dizziness, no neurological deficits. Pt reports that she recently had CT at hospital in [place], [place]. Order placed to obtain records Tylenol for pain Headache has resolved as of now, continue to closely monitor (9) CKD (chronic kidney disease) stage 3, GFR 30-59 ml/min Current Visit: Yes Status: Chronic Assessment and Plan: Was sent from nephrology office to ED for worsening renal function. 10/23-. 32 continues to be at baseline eating back to 2016 continue to avoid nephrotoxins and monitor labs. (10) HTN (hypertension) Current Visit: Yes Status: Acute Assessment and Plan: Chronic. Having hypertensive episodes this afternoon Resume medications, add amlodipine 5 mg daily first dose now, having hydralazine 10 mg IV push every 6 when necessary Monitor labs per admission orders. (11) DVT prophylaxis Current Visit: Yes Status: Acute Assessment and Plan: Continue Xarelto - Time Spent with Patient Total time spent is greater than 50% in coordination of care (as documented) at patient's floor/unit and/or counseling patient: less than 15 minutes Plan of Care Discussed with: patient Internal Medicine: Result - Labs CBC & Chem 7: 10/23/17 01:01 10/23/17 01:01 Labs: Short CBC 10/23/17 Range/Units 01:01 WBC 13.0 H (4.3-11.1) K/mcL Hgb 10.5 L (11.5-15.4) g/dL Hct 32.5 L (35.3-44.9) % Plt Count 432 H (140-400) K/mcL Neutrophils # 9.7 H (1.6-8.9) K/mcL BMP 10/23/17 01:01 Sodium 139 Potassium 4.6 Chloride 101 Carbon Dioxide 32 H BUN 24 H Creatinine 1.57 H Glucose 163 H Calcium 9.2 Cardiac Enzymes 10/22/17 10/23/17 Range/Units 18:53 01:01 Troponin I < 0.03 < 0.03 (< 0.04) ng/mL - ABG Interpretation ABG results: PT/INR, D-dimer PT 24.9 Seconds (9.4-12.1) H 10/22/17 12:26 Consult Discharge Plan - Plan Referrals: Salomon Cazares [Primary Care Provider] - (1) Chest pain Qualifiers: Chest pain type: unspecified Qualified Code(s): R07.9 - Chest pain, unspecified (3) Sleep apnea Qualifiers: Sleep apnea type: obstructive Qualified Code(s): G47.33 - Obstructive sleep apnea (adult) (pediatric) (4) Bipolar disorder Qualifiers: Active/Remission status: remission status unspecified Qualified Code(s): F31.9 - Bipolar disorder, unspecified (6) COPD (chronic obstructive pulmonary disease) Qualifiers: COPD type: unspecified COPD Qualified Code(s): J44.9 - Chronic obstructive pulmonary disease, unspecified (7) Pacemaker complications Qualifiers: Encounter type: initial encounter Qualified Code(s): T82.9XXA - Unspecified complication of cardiac and vascular prosthetic device, implant and graft, initial encounter (8) Headache Qualifiers: Headache type: unspecified Headache chronicity pattern: acute headache Intractability: not intractable Qualified Code(s): R51 - Headache (10) HTN (hypertension) Qualifiers: Hypertension type: unspecified Qualified Code(s): I10 - Essential (primary) hypertension
[2017-10-23] MEDS: amLODIPine 5 MG TABLET PO SCH (15:11)
--- NOTE | 2017-10-23 15:39 | Event Note ---
Date of Encounter: 10/23/17 Time of Encounter: 15:30 [facility] would not allow me to edit consultation. Please consider this attestation to that consultation. Patient seen and examined independently. Case discussed with patient in great detail. Atypical chest pain. PAF. Undersensing noted on device check. Discussed with EP, recommend treat AF. Agree with increase in BB therapy. Continue renal dose adjusted Xarelto. Check TTE. Further recommendations to follow. Thanks, Andrew Caputo DO, FACC
--- NOTE | 2017-10-23 16:26 | Electrocardiograph Report ---
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
--- NOTE | 2017-10-23 16:28 | Electrocardiograph Report ---
[place] [address] Test Date: 2017-10-22 Pat Name: Marta Latif Department: Room: 3B Gender: F Manager Business Operations: : 1935 Requested By: Su Craven Order Number: [id number] Reading MD: Sonia Chance Measurements Intervals [place] Rate: 68 P: CT: 327 QRS: -1 QRSD: 95 T: 37 QT: 417 QTc: 444 Interpretive Statements Atrial-paced rhythm Electronically Signed On 10-23-2017 16:27:02 EDT by Sonia Chance
--- NOTE | 2017-10-23 16:32 | Electrocardiograph Report ---
[address] [place], [place] [address] Test Date: 2017-10-22 Pat Name: Marta Latif Department: Room: 3B Gender: F Budder: : 1935 Requested By: Johnson Fall Order Number: [id number] Reading MD: Sonia Chance Measurements Intervals [place] Rate: 63 P: SD: 290 QRS: -3 QRSD: 96 T: 33 QT: 447 QTc: 458 Interpretive Statements Atrial-paced rhythm Electronically Signed On 10-23-2017 16:30:22 EDT by Sonia Chance
[2017-10-23] MEDS: Metoprolol XL (24 HR) Succ 50 MG TAB.ER.24H PO SCH (19:33)
[2017-10-24] MEDS ORDERED: Melatonin 3 MG TABLET PO PRN (02:10)
[2017-10-24 06:04] LABS: Basophils % 0.2 %; Eosinophils # 0.3 K/mcL (0.0-0.6); Eosinophils % 2.7 %; Hematocrit 31.7 % (35.3-44.9); Hemoglobin 10.2 g/dL (11.5-15.4); Immature Granulocytes % 2.7 % (0-4); Lymphocytes # 1.8 K/mcL (0.6-4.6); Lymphocytes % 14.6 %; Mean Corpuscular HGB Conc 32.2 g/dL (31.6-35.5); Mean Corpuscular Hemoglobin 30.6 pg (28.0-33.3); Mean Corpuscular Volume 95.2 fL (83.0-100.0); Mean Platelet Volume 8.9 fL (9.4-12.4); Monocytes # 0.6 K/mcL (0.0-1.3); Monocytes % 4.5 %; Neutrophils # 9.1 K/mcL (1.6-8.9); Platelet Count 395 K/mcL (140-400); Red Blood Count 3.33 M/mcL (3.82-4.97); Red Cell Distribution Width 14.2 % (11.5-14.5); Segmented Neutrophils % 75.3 %
[2017-10-24 06:31] LABS: Calcium 8.9 mg/dL (8.6-10.3); Potassium 4.4 mEq/L (3.5-5.1)
[2017-10-24 08:09] LABS: Estimated Average Glucose 217 mg/dl; Hemoglobin A1C 9.2 %
[2017-10-24] MEDS: cloNIDine HCl 0.1 MG TABLET PO SCH ×2 (08:28→20:10)
[2017-10-24] MEDS: Cholecalciferol (D-3) 1,000 UNIT TABLET PO SCH (08:28)
[2017-10-24] MEDS: BuPROPion XL (24 HR) 150 MG TABLET PO SCH (08:28)
[2017-10-24] MEDS: Metoprolol XL (24 HR) Succ 50 MG TAB.ER.24H PO SCH ×2 (08:28→20:10)
[2017-10-24] MEDS: Gabapentin 300 MG CAPSULE PO SCH ×3 (08:28→20:10)
[2017-10-24] MEDS: Torsemide 20 MG TABLET PO SCH (08:28)
[2017-10-24] MEDS: amLODIPine 5 MG TABLET PO SCH (08:28)
[2017-10-24] MEDS: Insulin LISPRO 300 UNITS/3 ML VIAL SQ SCH ×4 (08:29→21:15)
[2017-10-24] MEDS: Lactulose Oral Soln 20 GM/30 ML UDC PO SCH (08:29)
[2017-10-24] MEDS: Fluticasone Propionate Nasal 50 MCG/SPRAY BOTTLE NS SCH (08:29)
[2017-10-24] MEDS: (Biotin [Biotin] 300 MCG) PO SCH (08:30)
[2017-10-24] MEDS: Sennosides 8.6 MG TABLET PO SCH (08:30)
[2017-10-24] MEDS: traMADol 50 MG TABLET PO PRN ×2 (08:37→20:16)
--- NOTE | 2017-10-24 08:43 | Cardiology Progress Note ---
Date of Encounter: 10/24/17 Time of Encounter: 06:50 Assessment and Plan (1) Paroxysmal A-fib Current Visit: Yes Status: Acute Device check shows intermittent runs PAF with RVR since July 2017. Patient noted to be on xarelto already for unclear reason. She does not follow with [facility]. Continue xarelto for primary CVA prevention. Increase bb as tolerated. Toprol xl increased to 50 mg BID, avg HR=63. No further testing recommended, will sign-off. Out-pt f/u with cardiology will be established. (2) Chest pain Current Visit: Yes Status: Acute C/o reproducible chest wall pain. Suspect musculoskeletal in etiology. Troponin negative. EKG shows atrial pacing with no acute ST/T wave change. No prior history CAD. Continue to monitor. No further testing indicated from cardiac standpoint. Qualifiers: Chest pain type: unspecified Qualified Code(s): R07.9 - Chest pain, unspecified Discussion w patient/family: The assessment and plan as outlined above was discussed with the patient and/or family members who expressed understanding and agreement. All questions were answered. Thank you for involving us in the care of your patient. Please call with any questions. The patient was discussed and reviewed with Dr. Caputo; Cardiology will sign- off, please call with questions. Subjective Principal diagnosis: Afib Interval history: Seen and examined. No cardiac complaints upon exam today. Reports is waiting to see her kidney specialist today. Objective Vital Signs, Last 4 Hours Temp Pulse Resp BP Pulse Ox 10/24/17 07:57 99.2 F 61 16 159/83 96 General: Conversant, No Apparent Distress, Other (morbidly obese) HEENT: Atraumatic, Normocephaly Cardiac: Reg Rate and Rhythm Lungs: Normal Breath Sounds Neuro: Alert and responsive Abdomen: Soft, Other (large, distended) Skin: No rashes noted on visualized skin Musculoskeletal: No Chest Wall Tenderness Extremities: No Edema, Normal Pulses Results 10/24/17 05:47 10/24/17 05:47 Lab Results 10/23/17 10/24/17 10/24/17 14:08 05:47 05:47 WBC 12.1 H Hgb 10.2 L Hct 31.7 L Plt Count 395 Sodium 140 Potassium 4.4 Chloride 101 Carbon Dioxide 32 H BUN 23 Creatinine 1.70 H Glucose 206 H Calcium 8.9 TSH 1.505 - Imaging and Cardiology Echo: report reviewed Other Results: 12 hour tele: avg HR=63 paced at times. - EKG Interpretation EKG results cardiology: personally reviewed Consult Discharge Plan - Plan Referrals: Salomon Cazares [Primary Care Provider] -
--- NOTE | 2017-10-24 11:42 | Internal Med Progress Note ---
Hospitalist Progress Note - Encounter Date of Encounter: 10/24/17 Time of Encounter: 11:40 - Subjective Interval History: Patient seen and examined at bedside today, no acute changes overnight. Continues to report reproducible chest pain and intermittent chest discomfort. I believe this to be musculoskeletal in etiology getting that her symptoms are reproducible with palpation. I reviewed today's lab results with the patient and she still voices concerns with decline in renal function. I informed her that I will discuss her case with the nephrology team. Plan of care was discussed, patient denies any further questions or verbalized understanding. - Exam Vitals: Temp Pulse Resp BP Pulse Ox 99.2 F 61 16 159/83 96 10/24/17 07:57 10/24/17 07:57 10/24/17 07:57 10/24/17 07:57 10/24/17 07:57 Exam: PHYSICAL EXAMINATION: GENERAL: The patient is an obese female in no apparent distress, she is alert and oriented to self and place, some mild confusion HEENT: Head is normocephalic and atraumatic. Extraocular muscles are intact. Pupils are equal, round, and reactive to light and accommodation. Nares appeared normal. Mouth is well hydrated and without lesions. Mucous membranes are moist. Posterior pharynx clear of any exudate or lesions. NECK: Supple. No carotid bruits. No lymphadenopathy or thyromegaly. LUNGS: Clear/diminished to auscultation. HEART: Regular RRR, S1, S2 without murmurs rubs or gallops. Diffuse Chest wall tenderness to palpation ABDOMEN: Soft, nontender, and nondistended. Positive bowel sounds. No hepatosplenomegaly was noted. EXTREMITIES: Without any cyanosis, clubbing, rash, lesions or edema. NEUROLOGIC: Cranial nerves II through XII are grossly intact. SKIN: No ulceration or induration present. - Assessment and Plan (1) Chest pain Current Visit: Yes Status: Acute Assessment and Plan: Presented with substernal chest pain with radiation to left breast, left mid axillary area with associated shortness of breath, diaphoresis, nausea. She describes pressure as well stating "an elephant is sitting on my chest" Chest pain continues to be suspicious for musculoskeletal origin as she has diffuse tenderness with palpation to the chest wall. serial troponins obtained and negative 3 less than 0.03 EKG with atrial pacing without acute ST-T wave changes No prior history of CAD Has been having PAF with RVR per professor of biostatistics evaluation. Device check showing intermittent runs of PAF with RVR since July 2017 Continuing Xarelto at this time. Toprol-XL adjusted to twice a day dosing Cardiology signed off--recommend no further testing at this time--to follow-up with cardiology as an outpatient law instructor to establish. Continue telemetry Tylenol for pain Continue Xarelto, BB at increased dose, Lipitor Consult to social services designee-patient to return to [facility] when medically stable TTE pending (2) Morbid obesity due to excess calories Current Visit: Yes Status: Chronic Assessment and Plan: Reiterated lifestyle modifications, including diet and exercise (3) Sleep apnea Current Visit: Yes Status: Chronic Assessment and Plan: BiPAP as needed (4) Bipolar disorder Current Visit: Yes Status: Acute Assessment and Plan: Continue Buspar and Wellbutrin (5) Insulin-requiring or dependent type II diabetes mellitus Current Visit: Yes Status: Acute Assessment and Plan: Per history, Increase to medium SSI has fears to blood glucose continues to be elevated, accuchecks achs, diabetic/cardiac diet. No recent A1c. Will draw with morning labs. (6) COPD (chronic obstructive pulmonary disease) Current Visit: Yes Status: Acute Assessment and Plan: History of COPD, stable, not in acute exacerbation. Lungs remained clear/diminished. Pt is at baseline 02 Continue Duonebs and 02, titrate to maintain sats > 92% (7) Pacemaker complications Current Visit: Yes Status: Acute Assessment and Plan: History of pacemaker for sinus node dysfunction Per professor of biostatistics review episodes of PAF with RVR occurring intermittently since July 2017 Cardiology following Toprol XL increased from 50 mg daily to 50 mg twice a day, average heart rate overnight 63. Continue twice a day Toprol-XL for control of A. fib, continue Xarelto. Cardiology has signed off and patient is to have outpatient follow-up (8) Headache Current Visit: Yes Status: Resolved Assessment and Plan: Pt reports having intermittent global headache with nausea and vomiting for 1 month Reporting migraine-like presentation CT [facility] [place] I reviewed this myself and the CT of head is without acute intracranial abnormality She denies vision changes or dizziness, no neurological deficits. Continue Tylenol for pain PRN Denies any headache currently, continue to closely monitor and treat as stated above (9) CKD (chronic kidney disease) stage 3, GFR 30-59 ml/min Current Visit: Yes Status: Chronic Assessment and Plan: Was sent from nephrology office to ED for worsening renal function. 10/23- continues to be at baseline dating back to 2015. Today's renal function 10/24 - continues to have fluctuations around baseline. However, since she was sent to the ED for worsening renal function and will discuss with nephrology regarding further recommendations. continue to avoid nephrotoxins and monitor labs. (10) HTN (hypertension) Current Visit: Yes Status: Acute Assessment and Plan: Chronic. Hypertensive episodes occurring yesterday, have improved overnight with the addition of 5 mg of amlodipine. Continue to closely monitor and titrate if necessary. Continue hydralazine 10 mg IV push every 6 when necessary (11) Leukocytosis Current Visit: Yes Status: Acute Assessment and Plan: Presents with leukocytosis WBC 13.6--continue to trend down throughout stay today mild at 12.1 Was recently seen and treated at [facility] in [place] for urinary tract infection, ESBL Escherichia coli sensitive to Invanz While there she received 5 total doses She does not appear toxic, has remained afebrile during the stay Urinalysis obtained and is overall unimpressive, only revealing trace blood is negative for nitrates or leukocyte esterase is negative for pyuria Refrain from treating with additional antibiotics at this time Continue to monitor labs daily (12) DVT prophylaxis Current Visit: Yes Status: Acute Assessment and Plan: Xarelto - Time Spent with Patient Total time spent is greater than 50% in coordination of care (as documented) at patient's floor/unit and/or counseling patient: less than 15 minutes Plan of Care Discussed with: patient Internal Medicine: Result - Labs CBC & Chem 7: 10/24/17 05:47 10/24/17 05:47 Labs: Short CBC 10/24/17 Range/Units 05:47 WBC 12.1 H (4.3-11.1) K/mcL Hgb 10.2 L (11.5-15.4) g/dL Hct 31.7 L (35.3-44.9) % Plt Count 395 (140-400) K/mcL Neutrophils # 9.1 H (1.6-8.9) K/mcL BMP 10/24/17 05:47 Sodium 140 Potassium 4.4 Chloride 101 Carbon Dioxide 32 H BUN 23 Creatinine 1.70 H Glucose 206 H Calcium 8.9 - ABG Interpretation ABG results: PT/INR, D-dimer PT 24.9 Seconds (9.4-12.1) H 10/22/17 12:26 Consult Discharge Plan - Plan Referrals: Salomon Cazares [Primary Care Provider] - (1) Chest pain Qualifiers: Chest pain type: unspecified Qualified Code(s): R07.9 - Chest pain, unspecified (3) Sleep apnea Qualifiers: Sleep apnea type: obstructive Qualified Code(s): G47.33 - Obstructive sleep apnea (adult) (pediatric) (4) Bipolar disorder Qualifiers: Active/Remission status: remission status unspecified Qualified Code(s): F31.9 - Bipolar disorder, unspecified (6) COPD (chronic obstructive pulmonary disease) Qualifiers: COPD type: unspecified COPD Qualified Code(s): J44.9 - Chronic obstructive pulmonary disease, unspecified (7) Pacemaker complications Qualifiers: Encounter type: initial encounter Qualified Code(s): T82.9XXA - Unspecified complication of cardiac and vascular prosthetic device, implant and graft, initial encounter (8) Headache Qualifiers: Headache type: unspecified Headache chronicity pattern: acute headache Intractability: not intractable Qualified Code(s): R51 - Headache (10) HTN (hypertension) Qualifiers: Hypertension type: unspecified Qualified Code(s): I10 - Essential (primary) hypertension (11) Leukocytosis Qualifiers: Leukocytosis type: unspecified Qualified Code(s): D72.829 - Elevated white blood cell count, unspecified
--- NOTE | 2017-10-24 13:05 | Nephrology Consult Note ---
Date of Encounter: 10/24/17 Time of Encounter: 12:58 Assessment and Plan (1) CKD (chronic kidney disease) stage 3, GFR 30-59 ml/min Current Visit: Yes Status: Chronic Baseline GFR appears to be around 32. She is near baseline and may go from a renal standpoint. Will do an iron profile in the am if she stays overnight. Avoid nephrotoxins and renal dose all medications. Strict I/O Renal diet, if able to eat. (2) COPD (chronic obstructive pulmonary disease) Current Visit: Yes Status: Acute Continue current home medications. Qualifiers: COPD type: unspecified COPD Qualified Code(s): J44.9 - Chronic obstructive pulmonary disease, unspecified (3) Chest pain Current Visit: Yes Status: Acute Denies chest pain at this time. Qualifiers: Chest pain type: unspecified Qualified Code(s): R07.9 - Chest pain, unspecified History of Present Illness - Reason for Consult Consult date: 10/24/17 Chronic Kidney Disease - Chief Complaint abnormal labs - History of Present Illness Ms. Latif is an 82 year old female with CKD IIIB/IV. She was sent in by regional economist for worsening renal function. She did report that she had chest pain that started in the ED but per Cardio note, it is reproducible. They have since signed off and would like her to establish with [facility]. She denies CP, SOB at this time. It appears her baseline GFR is approximately 32. GFR today is 29 was 32 yesterday. The patient is very concerned about her kidney function. She does live in an [facility] and appears to be a good historian. Past Med Surg Social Fam HX - Past Medical History Medical history: arthritis, CHF, COPD, coronary artery disease, diabetes, hyperlipidemia, hypertension, renal disease, other Additional medical history: acute renal failure, lumbar DDD, dementia, angina, neuropathy, anemia, anxiety/depression,. bipolar, schizophrenia, pacemaker, sleep apnea with CPAP, left breast nodule, pneumonia Psychiatric history: anxiety, bipolar - Past Surgical History Surgical History: appendectomy, cataract, herniorrhaphy, hysterectomy, knee replacement, pacemaker/AICD, other Additional surgical history: pain pump - Social History Smoking Status: Never smoker Smokeless Tobacco Status: No Alcohol use: none Drug use: none - Family History Brother Hx Family Endocrine Disorder: Yes Medications and Allergies Acetaminophen [Tylenol] 500 mg PO Q4H PRN 05/20/16 [History] Allopurinol [Zyloprim 100 MG] 200 mg PO DAILY 07/23/15 [History] Atorvastatin [Lipitor] 10 mg PO HS 07/23/15 [History] Biotin 300 mcg PO DAILY 07/23/15 [History] Buspirone HCl [Buspar] 10 mg PO BID 07/23/15 [History] Cholecalciferol (Vitamin D3) [Vitamin D3] 2,000 unit PO DAILY 07/23/15 [History] Fluticasone Propionate Nasal [Flonase] 2 spr NS DAILY 07/23/15 [History] Gabapentin [Neurontin] 300 mg PO TID 07/23/15 [History] Insulin Human Regular [HumuLIN R] 2 - 10 unit SQ TID 07/23/15 [History] Insulin NPH, HUMAN [HumuLIN N] 55 unit SQ QAM 07/23/15 [History] Ipratropium/Albuterol Neb [Duoneb] 3 ml IH Q4HR PRN 07/23/15 [History] Lactulose 30 ml PO DAILY 07/23/15 [History] Magnesium Hydroxide [Milk of Magnesia] 30 ml PO DAILY PRN 07/23/15 [History] Metoprolol XL (24 HR) Succ [Toprol Xl] 50 mg PO DAILY 07/23/15 [History] Sennosides [Senna] 17.2 mg PO DAILY 07/23/15 [History] cloNIDine HCl [CloNIDine HCl] 0.1 mg PO BID 07/23/15 [History] Bupropion HCl [Wellbutrin Xl] 300 mg PO DAILY 10/22/17 [History] Docusate Sodium [Dok] 200 mg PO DAILY 10/22/17 [History] Ertapenem [INVanz] 1,000 mg IM DAILY 10/22/17 [History] Oxybutynin Chloride [Ditropan Xl] 10 mg PO DAILY 10/22/17 [History] Rivaroxaban [Xarelto] 15 mg PO DAILY 10/22/17 [History] Torsemide [Demadex] 20 mg PO DAILY 10/22/17 [History] 3 Allergy/AdvReac Type Severity Reaction Status Date / Time codeine AdvReac See Verified 06/02/15 08:41 Comments tuberculin,PPD,multi-puncture AdvReac See Verified 08/30/15 16:23 Comments Review of Systems Cardiovascular: no chest pain, no edema Gastrointestinal: no diarrhea, no nausea, no vomiting Exam - Vital Signs Vital signs: Initial Vital Signs Temp Pulse Resp BP Pulse Ox 98.6 F 62 12 175/97 99 10/22/17 11:56 10/22/17 11:56 10/22/17 11:56 10/22/17 11:56 10/22/17 11:56 Vital Signs - Last 8 Hours Temp Pulse Resp BP Pulse Ox 10/24/17 12:35 98.3 F 69 18 154/79 98 10/24/17 07:57 99.2 F 61 16 159/83 96 Intake and Output 10/23/17 10/24/17 10/24/17 23:59 07:59 15:59 Intake Total 240 / 240 Output Total 300 / 300 Balance -60 / -60 Intake: Oral 240 / 240 Output: Urine 300 / 300 Other: Meal Breakfast Percent of Meal Consumed 5% Stool Size Smear Small Stool Consistency soft Stool Color Brown # Voids 3 # Bowel Movements 1 Weight 118.8 kg Blood Glucose* 100 208 162 Patient Weight 10/24/17 23:59 Weight 118.8 kg - General Appearance General appearance: well-developed, well-nourished EENT: ATNC, hearing intact, vision intact Neck: supple Respiratory: clear Cardiology: normal S1, normal S2 Gastrointestinal: normoactive bowel sounds, no tenderness, no guarding Integumentary: no rash, warm and dry Neurologic: alert and oriented x3 Psychiatric: mood/affect appropriate, cooperative Results - Lab Results 10/24/17 05:47 10/24/17 05:47 Most recent lab results Calcium 8.9 mg/dL (8.6-10.3) 10/24/17 05:47 Magnesium 1.7 mg/dL (1.6-2.6) 10/23/17 01:01 Consult Discharge Plan - Plan Referrals: Salomon Cazares [Primary Care Provider] -
[2017-10-24] MEDS ORDERED: *HR* Rivaroxaban 15 MG TABLET PO SCH (17:00)
[2017-10-25] MEDS: Acetaminophen 325 MG TABLET PO PRN (01:25)
[2017-10-25] MEDS: amLODIPine 5 MG TABLET PO SCH (08:35)
[2017-10-25] MEDS: cloNIDine HCl 0.1 MG TABLET PO SCH (08:35)
[2017-10-25] MEDS: BuPROPion XL (24 HR) 150 MG TABLET PO SCH (08:35)
[2017-10-25] MEDS: Cholecalciferol (D-3) 1,000 UNIT TABLET PO SCH (08:35)
[2017-10-25] MEDS: Torsemide 20 MG TABLET PO SCH (08:35)
[2017-10-25] MEDS: traMADol 50 MG TABLET PO PRN (08:35)
[2017-10-25] MEDS: Gabapentin 300 MG CAPSULE PO SCH (08:35)
[2017-10-25] MEDS: Metoprolol XL (24 HR) Succ 50 MG TAB.ER.24H PO SCH (08:35)
[2017-10-25] MEDS: Sennosides 8.6 MG TABLET PO SCH (08:36)
[2017-10-25] MEDS: Lactulose Oral Soln 20 GM/30 ML UDC PO SCH (08:36)
[2017-10-25] MEDS: Fluticasone Propionate Nasal 50 MCG/SPRAY BOTTLE NS SCH (08:37)
[2017-10-25] MEDS: Insulin LISPRO 300 UNITS/3 ML VIAL SQ SCH ×2 (08:38→12:33)
[2017-10-25 09:08] LABS: Calcium 9.3 mg/dL (8.6-10.3); Potassium 4.4 mEq/L (3.5-5.1)
--- NOTE | 2017-10-25 11:36 | Nephrology Progress Note ---
Date of Encounter: 10/25/17 Time of Encounter: 11:34 - Assessment and Plan (1) CKD (chronic kidney disease) stage 3, GFR 30-59 ml/min Current Visit: Yes Status: Chronic Baseline GFR appears to be around 32. She is near baseline and may go from a renal standpoint. Scr is 1.82 and GFR is 27. Pt is going back to [facility] today and can f/u with Dr. Barney in office in 4-6 weeks. (2) COPD (chronic obstructive pulmonary disease) Current Visit: Yes Status: Acute Continue current home medications. Qualifiers: COPD type: unspecified COPD Qualified Code(s): J44.9 - Chronic obstructive pulmonary disease, unspecified (3) Chest pain Current Visit: Yes Status: Acute Denies chest pain at this time. Qualifiers: Chest pain type: unspecified Qualified Code(s): R07.9 - Chest pain, unspecified Subjective Principal diagnosis: Afib Interval history: Pt seen and examined, doing well. Objective - Vital Signs Vital signs: Vital Signs Temp Pulse Resp BP Pulse Ox 10/25/17 07:13 98.2 F 53 18 171/79 98 10/25/17 03:52 99.0 F 51 14 143/79 97 10/24/17 22:58 98.9 F 80 16 107/74 96 10/24/17 19:28 99 F 63 16 117/72 95 10/24/17 15:45 98.6 F 64 18 156/75 96 10/24/17 12:35 98.3 F 69 18 154/79 98 Intake and Output 10/24/17 10/25/17 10/25/17 23:59 07:59 15:59 Intake Total 240 / 240 Output Total 300 / 300 0 / 0 Balance -300 / -300 0 / 0 240 / 240 Intake: Oral 240 / 240 Output: Urine 300 / 300 0 / 0 Other: Meal Breakfast Percent of Meal Consumed 35% Stool Size Small Stool Consistency formed Stool Color Brown # Voids 1 # Bowel Movements 1 Weight 122.2 kg Blood Glucose* 189 232 Patient Weight 10/25/17 23:59 Weight 122.2 kg - General Appearance General appearance: Present: well-developed, well-nourished, obese EENT: Present: ATNC, hearing intact, vision intact Neck: Present: supple Respiratory: Present: clear Cardiology: Present: no edema, normal S1, normal S2 Gastrointestinal: Present: normoactive bowel sounds, no tenderness, no guarding Integumentary: Present: no rash, warm and dry Neurologic: Present: alert and oriented x3 Psychiatric: Present: mood/affect appropriate, cooperative - Lab 10/24/17 05:47 10/25/17 05:19 Most recent lab results Calcium 9.3 mg/dL (8.6-10.3) 10/25/17 05:19 Magnesium 1.7 mg/dL (1.6-2.6) 10/23/17 01:01 Consult Discharge Plan - Plan Instructions: Chest Pain (DC), Chronic Obstructive Pulmonary Disease (DC), Chronic Hypertension (DC) Referrals: Salomon Cazares [Primary Care Provider] - Prescriptions: amLODIPine [Norvasc] 5 mg PO DAILY 30 Days #30 tablet Metoprolol XL (24 HR) Succ [Toprol Xl] 50 mg PO BID 30 Days #60 tab.er.24h
--- NOTE | 2017-10-25 11:49 | Discharge Summary ---
- NOTES TO OUTPATIENT PROVIDER Notes to Outpatient Provider: Recommend follow-up labs to assess renal function Date of Encounter: 10/25/17 Time of Encounter: 11:47 - Discharge Diagnosis (1) Chest pain Priority: Primary Status: Acute Assessment and Plan: Presented with substernal chest pain with radiation to left breast, left mid axillary area with associated shortness of breath, diaphoresis, nausea. She describes pressure as well stating "an elephant is sitting on my chest" Chest pain continues to be suspicious for musculoskeletal origin as she has diffuse tenderness with palpation to the chest wall. serial troponins obtained and negative 3 less than 0.03 EKG with atrial pacing without acute ST-T wave changes No prior history of CAD Has been having PAF with RVR per academic support director evaluation. Device check showing intermittent runs of PAF with RVR since July 2017 Continuing Xarelto at this time. 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 TTE reveals--LVEF 55-60%. Mild left ventricular diastolic dysfunction. Normal right ventricular structure and function. Severely dilated left atrium. Mild tricuspid regurgitation. No pulmonary hypertension. A device lead was visualized in the right atrium and right ventricle. Qualifiers: Chest pain type: unspecified Qualified Code(s): R07.9 - Chest pain, unspecified (2) Morbid obesity due to excess calories Priority: Secondary Status: Chronic (3) Sleep apnea Priority: Secondary Status: Chronic Qualifiers: Sleep apnea type: obstructive Qualified Code(s): G47.33 - Obstructive sleep apnea (adult) (pediatric) (4) Bipolar disorder Priority: Secondary Status: Acute Qualifiers: Active/Remission status: remission status unspecified Qualified Code(s): F31.9 - Bipolar disorder, unspecified (5) Insulin-requiring or dependent type II diabetes mellitus Priority: Secondary Status: Acute (6) COPD (chronic obstructive pulmonary disease) Priority: Secondary Status: Acute Qualifiers: COPD type: unspecified COPD Qualified Code(s): J44.9 - Chronic obstructive pulmonary disease, unspecified (7) Pacemaker complications Priority: Secondary Status: Acute Assessment and Plan: History of pacemaker for sinus node dysfunction Per academic support director review episodes of PAF with RVR occurring intermittently since July 2017 Cardiology increased dose of Toprol-XL from 50 mg daily to 50 mg twice a day, patient tolerated well, heart rate well controlled at times sinus bradycardic but remains dynamically stable. Cardiology has signed off and recommends follow -up outpatient Qualifiers: Encounter type: initial encounter Qualified Code(s): T82.9XXA - Unspecified complication of cardiac and vascular prosthetic device, implant and graft, initial encounter (8) Headache Priority: Secondary Status: Resolved Qualifiers: Headache type: unspecified Headache chronicity pattern: acute headache Intractability: not intractable Qualified Code(s): R51 - Headache (9) CKD (chronic kidney disease) stage 3, GFR 30-59 ml/min Priority: Secondary Status: Chronic Assessment and Plan: Was sent from nephrology office to ED for worsening renal function Renal function appears to be fluctuating around baseline since admission Slightly elevated today but again around patient's baseline PCP to get follow-up labs to further monitor (10) HTN (hypertension) Priority: Secondary Status: Acute Qualifiers: Hypertension type: unspecified Qualified Code(s): I10 - Essential (primary ) hypertension (11) Leukocytosis Priority: Secondary Status: Acute Qualifiers: Leukocytosis type: unspecified Qualified Code(s): D72.829 - Elevated white blood cell count, unspecified (12) DVT prophylaxis Priority: Secondary Status: Acute Hospital course: Ms. Latif is a 82 year old female with past medical history of morbid obesity, sleep apnea, chronic kidney disease stage III, diabetes, bipolar disorder, COPD , pacemaker. She presented to the ER from 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 While in the emergency department the patient began complaining of chest discomfort and shortness of breath. ACS rule out implemented and workup found to be unremarkable. History of PAF, concerns for abnormal rhythm on telemetry. Device check indicate intermittent runs of PAF with RVR since July 2017. Patient already on Xarelto, this will be continued at discharge. Cardiology increase Toprol-XL from 50 mg daily to 50 mg twice a day, per cardiology recommendations no further testing warranted. To have outpatient follow-up with [facility] after discharge. Cardiology was seen while inpatient and is signed off. Additionally, patient was found to have episodes of hypertension, amlodipine 5 mg daily was added to her medication list and she was sent home with this prescription. Of note the patient was found to have leukocytosis was noted to have a recent urinary tract infection which was treated with a 5 day course of Invanz. Repeat urinalysis was unimpressive without nitrates or leukocyte esterase or pyuria. She was not treated for urinary tract infection during this stay. She remained afebrile, hemodynamically stable, nontoxic appearing, was not having any urinary symptoms. WBC trending down. Additionally, nephrology was consult throughout the stay and agrees with the patient's renal function is currently fluctuating around baseline. She is safe to DC from a nephrology perspective further recommendations. She is to follow-up with her PCP/facility provider within one to 2 weeks from discharge. Discharge discussed with: patient, family, nurse - Time Spent with Patient Total time spent providing and/or coordinating discharge services: Less than 30 minutes - Discharge Medications Prescriptions: amLODIPine [Norvasc] 5 mg PO DAILY 30 Days #30 tablet Metoprolol XL (24 HR) Succ [Toprol Xl] 50 mg PO BID 30 Days #60 tab.er.24h Home Medications: Acetaminophen [Tylenol] 500 mg PO Q4H PRN 07/23/15 [History] Allopurinol [Zyloprim 100 MG] 200 mg PO DAILY 07/23/15 [History] Atorvastatin [Lipitor] 10 mg PO HS 07/23/15 [History] Biotin 300 mcg PO DAILY 07/23/15 [History] Buspirone HCl [Buspar] 10 mg PO BID 07/23/15 [History] Cholecalciferol (Vitamin D3) [Vitamin D3] 2,000 unit PO DAILY 07/23/15 [History] Fluticasone Propionate Nasal [Flonase] 2 spr NS DAILY 07/23/15 [History] Gabapentin [Neurontin] 300 mg PO TID 07/23/15 [History] Insulin Human Regular [HumuLIN R] 2 - 10 unit SQ TID 07/23/15 [History] Insulin NPH, HUMAN [HumuLIN N] 55 unit SQ QAM 07/23/15 [History] Ipratropium/Albuterol Neb [Duoneb] 3 ml IH Q4HR PRN 07/23/15 [History] Lactulose 30 ml PO DAILY 07/23/15 [History] Magnesium Hydroxide [Milk of Magnesia] 30 ml PO DAILY PRN 07/23/15 [History] Sennosides [Senna] 17.2 mg PO DAILY 07/23/15 [History] cloNIDine HCl [CloNIDine HCl] 0.1 mg PO BID 07/23/15 [History] Bupropion HCl [Wellbutrin Xl] 300 mg PO DAILY 10/22/17 [History] Docusate Sodium [Dok] 200 mg PO DAILY 10/22/17 [History] Oxybutynin Chloride [Ditropan Xl] 10 mg PO DAILY 10/22/17 [History] Rivaroxaban [Xarelto] 15 mg PO DAILY 10/22/17 [History] Torsemide [Demadex] 20 mg PO DAILY 10/22/17 [History] Metoprolol XL (24 HR) Succ [Toprol Xl] 50 mg PO BID 30 Days #60 tab.er.24h 10/25 [Rx] amLODIPine [Norvasc] 5 mg PO DAILY 30 Days #30 tablet 10/25/17 [Rx] Allergies/Adverse Reactions: 3 Allergy/AdvReac Type Severity Reaction Status Date / Time codeine AdvReac See Verified 06/02/15 08:41 Comments tuberculin,PPD,multi-puncture AdvReac See Verified 08/30/15 16:23 Comments Date of admission: 10/22/17 15:46 Primary care physician: Salomon Cazares Consults: 10/22/17 18:27 Consult to Insurance Healthcare Representative [CONS] Routine Reason for SW Consult: discharge planning 10/24/17 08:16 Consult to Nephrology [CONS] Routine Consulting Provider: Kidney Mikaela/KEZIA/CARLOS/RALPH Reason for Consult: Concerns for ZORAN on CKD Time Notified: 08:16 Call Completed: Yes Discharging clinician: Tom Ordonez Anticipated date of discharge: 10/25/17 - Constitutional Vitals: Temp Pulse Resp BP Pulse Ox 98.2 F 53 18 171/79 98 10/25/17 07:13 10/25/17 07:13 10/25/17 07:13 10/25/17 07:13 10/25/17 07:13 General appearance: Present: cooperative, A&O X 3, morbidly obese, pleasant, no acute distress, answers questions appropriately Exam: PHYSICAL EXAMINATION: GENERAL: The patient is an obese female in no apparent distress, she is alert and oriented to self and place, some mild confusion HEENT: Head is normocephalic and atraumatic. Extraocular muscles are intact. Pupils are equal, round, and reactive to light and accommodation. Nares appeared normal. Mouth is well hydrated and without lesions. Mucous membranes are moist. Posterior pharynx clear of any exudate or lesions. NECK: Supple. No carotid bruits. No lymphadenopathy or thyromegaly. LUNGS: Clear/diminished to auscultation. HEART: RRR, S1, S2 without murmurs rubs or gallops. ABDOMEN: Soft, nontender, and nondistended. Positive bowel sounds. No hepatosplenomegaly was noted. EXTREMITIES: Without any cyanosis, clubbing, rash, lesions or edema. NEUROLOGIC: Cranial nerves II through XII are grossly intact. SKIN: No ulceration or induration present. - Patient Status Disposition: Transfer SNF Condition: Fair Functional capacity at discharge: independent ambulation Overall status at discharge: patient is progressing back to baseline - Discharge Instructions Instructions: Chronic Obstructive Pulmonary Disease (DC), Chest Pain (DC), Chronic Hypertension (DC) Follow Up With: Salomon Cazares [Primary Care Provider] - - Diet and Activity Activity: increase activity as tolerated Diet: diabetic diet, low fat, low cholesterol
--- NOTE | 2017-10-25 12:14 | Physician Discharge Referral ---
ExtendedCare Referral Info Transfer To: [facility] Provider in Charge after Transfer: PCP Institutional Level of Care: Skilled - Diagnosis (1) Chest pain Priority: Primary Status: Acute (2) Morbid obesity due to excess calories Priority: Secondary Status: Chronic (3) Sleep apnea Priority: Secondary Status: Chronic (4) Bipolar disorder Priority: Secondary Status: Acute (5) Insulin-requiring or dependent type II diabetes mellitus Priority: Secondary Status: Acute (6) COPD (chronic obstructive pulmonary disease) Priority: Secondary Status: Acute (7) Pacemaker complications Priority: Secondary Status: Acute (8) Headache Priority: Secondary Status: Resolved (9) CKD (chronic kidney disease) stage 3, GFR 30-59 ml/min Priority: Secondary Status: Chronic (10) HTN (hypertension) Priority: Secondary Status: Acute (11) Leukocytosis Priority: Secondary Status: Acute (12) DVT prophylaxis Priority: Secondary Status: Acute Prognosis: Fair Aware of Diagnosis: Patient Aware of Prognosis: Patient - Transfer Medications Prescriptions: amLODIPine [Norvasc] 5 mg PO DAILY 30 Days #30 tablet Metoprolol XL (24 HR) Succ [Toprol Xl] 50 mg PO BID 30 Days #60 tab.er.24h Home Medications: Acetaminophen [Tylenol] 500 mg PO Q4H PRN 07/23/15 [History] Allopurinol [Zyloprim 100 MG] 200 mg PO DAILY 07/23/15 [History] Atorvastatin [Lipitor] 10 mg PO HS 07/23/15 [History] Biotin 300 mcg PO DAILY 07/23/15 [History] Buspirone HCl [Buspar] 10 mg PO BID 07/23/15 [History] Cholecalciferol (Vitamin D3) [Vitamin D3] 2,000 unit PO DAILY 07/23/15 [History] Fluticasone Propionate Nasal [Flonase] 2 spr NS DAILY 07/23/15 [History] Gabapentin [Neurontin] 300 mg PO TID 07/23/15 [History] Insulin Human Regular [HumuLIN R] 2 - 10 unit SQ TID 07/23/15 [History] Insulin NPH, HUMAN [HumuLIN N] 55 unit SQ QAM 07/23/15 [History] Ipratropium/Albuterol Neb [Duoneb] 3 ml IH Q4HR PRN 07/23/15 [History] Lactulose 30 ml PO DAILY 07/23/15 [History] Magnesium Hydroxide [Milk of Magnesia] 30 ml PO DAILY PRN 07/23/15 [History] Sennosides [Senna] 17.2 mg PO DAILY 07/23/15 [History] cloNIDine HCl [CloNIDine HCl] 0.1 mg PO BID 07/23/15 [History] Bupropion HCl [Wellbutrin Xl] 300 mg PO DAILY 10/22/17 [History] Docusate Sodium [Dok] 200 mg PO DAILY 10/22/17 [History] Oxybutynin Chloride [Ditropan Xl] 10 mg PO DAILY 10/22/17 [History] Rivaroxaban [Xarelto] 15 mg PO DAILY 10/22/17 [History] Torsemide [Demadex] 20 mg PO DAILY 10/22/17 [History] Metoprolol XL (24 HR) Succ [Toprol Xl] 50 mg PO BID 30 Days #60 tab.er.24h 10/25 [Rx] amLODIPine [Norvasc] 5 mg PO DAILY 30 Days #30 tablet 10/25/17 [Rx] Allergies/Adverse Reactions: 3 Allergy/AdvReac Type Severity Reaction Status Date / Time codeine AdvReac See Verified 06/02/15 08:41 Comments tuberculin,PPD,multi-puncture AdvReac See Verified 08/30/15 16:23 Comments - Respiratory Orders Smoking Cessation: Smoking cessation has been advised. For more information, call the [place] Tobacco Quit Line at 8-339-OGXG-NOW. - Mobility Orders Chair, Ambulate (chair ahd abulate with assist) - Rehabiliation Orders Rehab Potential: Fair Rehab Orders: Evaluation for Physical Therapy, Evaluation for Occupational Therapy - Diet Orders No Added Salt (JUAN), No Concentrated Sweets, Renal, Cardiac CERTIFICATION: I certify that the transfer of the above named patient to an Extended Care Facility is necessary for the continuing treatment of the diagnosis listed. The above information is true and accurate reflection of patient's current condition. Confidential - Redisclosure prohibited without a patient's written consent.
[2017-10-25 12:15] VITALS: BP 154/94
== END 2017-10-25 13:19 ==
LOC: 3BNU 11:46 → EMEROOARM 11:46 → 3BNU 17:04
PROVIDERS: ADMIT Internal Medicine; ATTEND Internal Medicine

== ENCOUNTER 2017-11-15 11:07 | Inpatient (IN) ==
[2017-11-15] MEDS ORDERED: Ipratropium/Albuterol Neb 3 ML IH ONE (11:23)
[2017-11-15] MEDS ORDERED: methylPREDNISolone 125 MG/2 ML VIAL IVP ONE (11:23)
--- NOTE | 2017-11-15 11:24 | Emergency Department Note ---
Disposition Clinical Impression: Pneumonia, Acute exacerbation of chronic obstructive airways disease, Acute and chronic respiratory failure Disposition: Admitted As Inpatient Condition: Fair General Adult HPI - General Stated complaint: Possible pneumonia Time Seen by Provider: 11/15/17 11:09 - Related Data Home Medications Medication Instructions Recorded Confirmed Acetaminophen [Tylenol] 500 mg PO Q4H PRN 07/23/15 11/15/17 Allopurinol [Zyloprim 100 MG] 200 mg PO DAILY 07/23/15 11/15/17 Atorvastatin [Lipitor] 10 mg PO HS 07/23/15 11/15/17 Biotin 300 mcg PO DAILY 07/23/15 11/15/17 Buspirone HCl [Buspar] 10 mg PO BID 07/23/15 11/15/17 Fluticasone Propionate Nasal 2 spr NS DAILY 07/23/15 11/15/17 [Flonase] Gabapentin [Neurontin] 300 mg PO TID 07/23/15 11/15/17 Ipratropium/Albuterol Neb [Duoneb] 3 ml IH Q4HR PRN 07/23/15 11/15/17 Lactulose 30 ml PO DAILY 07/23/15 11/15/17 Magnesium Hydroxide [Milk of 30 ml PO DAILY PRN 07/23/15 11/15/17 Magnesia] Sennosides [Senna] 17.2 mg PO DAILY 07/23/15 11/15/17 cloNIDine HCl [CloNIDine HCl] 0.1 mg PO BID 07/23/15 11/15/17 Docusate Sodium [Dok] 200 mg PO DAILY 10/22/17 11/15/17 Oxybutynin Chloride [Ditropan Xl] 10 mg PO DAILY 10/22/17 11/15/17 Rivaroxaban [Xarelto] 15 mg PO DAILY 10/22/17 11/15/17 Torsemide [Demadex] 20 mg PO DAILY 10/22/17 11/15/17 Citalopram Hydrobromide [Celexa] 10 mg PO DAILY 11/15/17 11/15/17 Insulin DETEMIR [Levemir Flextouch] 20 unit SQ QPM 11/15/17 11/15/17 Insulin NPH Human Isophane 55 unit SQ QAM 11/15/17 11/15/17 [Novolin N] Insulin Regular, Human [Novolin R] 2 - 10 unit SQ BIDWM 11/15/17 11/15/17 Previous Rx's Medication Instructions Recorded Metoprolol XL (24 HR) Succ [Toprol 50 mg PO BID 30 Days #60 tab.er.24h 10/25/17 Xl] amLODIPine [Norvasc] 5 mg PO DAILY 30 Days #30 tablet 10/25/17 Allergies Allergy/AdvReac Type Severity Reaction Status Date / Time codeine AdvReac See Verified 06/02/15 08:41 Comments tuberculin,PPD,multi-puncture AdvReac See Verified 08/30/15 16:23 Comments Past Medical History - Past Medical History Medical history: Reports: arthritis, CHF, COPD, coronary artery disease, diabetes, hyperlipidemia, hypertension, renal disease, other Surgical history: Reports: appendectomy, cataract, herniorrhaphy, hysterectomy, knee replacement, pacemaker/AICD, other Psychiatric history: Reports: anxiety, bipolar - Social History Smoking Status: Never smoker Smokeless Tobacco Status: No Alcohol use: Reports: none Drug use: Reports: none Course Vital Signs Temperature 97.5 F L 11/15/17 11:19 Pulse Rate 61 11/15/17 11:19 Respiratory Rate 20 11/15/17 11:19 Blood Pressure 131/78 11/15/17 11:19 O2 Sat by Pulse Oximetry 100 11/15/17 11:19 Temperature 97.5 F L 11/15/17 11:19 Pulse Rate 64 11/15/17 12:48 Respiratory Rate 19 11/15/17 16:41 Blood Pressure 152/107 11/15/17 12:48 O2 Sat by Pulse Oximetry 99 11/15/17 16:41 Oxygen Delivery Oxygen Delivery Room Air Medical Decision Making - Lab Data Result diagrams: 11/15/17 11:39 11/15/17 11:39 Lab Results 11/15/17 11/15/17 11/15/17 Range/Units 11:23 11:39 11:39 WBC 10.0 (4.3-11.1) K/mcL RBC 3.85 (3.82-4.97) M/mcL Hgb 12.0 (11.5-15.4) g/dL Hct 37.0 (35.3-44.9) % MCV 96.1 (83.0-100.0) fL MCH 31.2 (28.0-33.3) pg MCHC 32.4 (31.6-35.5) g/dL RDW 14.8 H (11.5-14.5) % Plt Count 277 (140-400) K/mcL MPV 9.5 (9.4-12.4) fL Immature Gran % 0.6 (0-4) % Seg Neutrophils % 79.3 % Lymphocytes % 14.8 % Monocytes % 3.7 % Eosinophils % 1.2 % Basophils % 0.4 % Neutrophils # 7.9 (1.6-8.9) K/mcL Lymphocytes # 1.5 (0.6-4.6) K/mcL Monocytes # 0.4 (0.0-1.3) K/mcL Eosinophils # 0.1 (0.0-0.6) K/mcL Basophils # 0.0 (0.0-0.2) K/mcL Sodium 141 (136-145) mEq/L Potassium 3.8 (3.5-5.1) mEq/L Chloride 102 (98-107) mEq/L Carbon Dioxide 31 H (23-29) mEq/L BUN 34 H (8-23) mg/dL Creatinine 1.50 H (0.60-1.20) mg/dL Est GFR ( Amer) 40 L (> 60) Est GFR (Non-Af Amer) 33 L (> 60) BUN/Creatinine Ratio 23 (6-26) Glucose 71 (70-105) mg/dL Calculated Osmolality 298 (280-300) Lactic Acid (0.5-2.2) mmol/L Calcium 9.3 (8.6-10.3) mg/dL Troponin I < 0.03 (< 0.04) ng/mL B-Natriuretic Peptide 74 (Less than 100) pg/mL 11/15/17 Range/Units 11:39 WBC (4.3-11.1) K/mcL RBC (3.82-4.97) M/mcL Hgb (11.5-15.4) g/dL Hct (35.3-44.9) % MCV (83.0-100.0) fL MCH (28.0-33.3) pg MCHC (31.6-35.5) g/dL RDW (11.5-14.5) % Plt Count (140-400) K/mcL MPV (9.4-12.4) fL Immature Gran % (0-4) % Seg Neutrophils % % Lymphocytes % % Monocytes % % Eosinophils % % Basophils % % Neutrophils # (1.6-8.9) K/mcL Lymphocytes # (0.6-4.6) K/mcL Monocytes # (0.0-1.3) K/mcL Eosinophils # (0.0-0.6) K/mcL Basophils # (0.0-0.2) K/mcL Sodium (136-145) mEq/L Potassium (3.5-5.1) mEq/L Chloride (98-107) mEq/L Carbon Dioxide (23-29) mEq/L BUN (8-23) mg/dL Creatinine (0.60-1.20) mg/dL Est GFR ( Amer) (> 60) Est GFR (Non-Af Amer) (> 60) BUN/Creatinine Ratio (6-26) Glucose (70-105) mg/dL Calculated Osmolality (280-300) Lactic Acid 1.0 (0.5-2.2) mmol/L Calcium (8.6-10.3) mg/dL Troponin I (< 0.04) ng/mL B-Natriuretic Peptide (Less than 100) pg/mL Attestation Statement - Attestation Attestation: I examined this patient and my medical decision-making was reviewed with the Resident Physician. I agree with the documented findings, disposition and treatment plan as described except to the extent set forth below. [id number] time provided Patient sent from the pain management clinic where she was scheduled to have an epidural injection. She was found to be hypoglycemic with coarse lung sounds and was sent to the emergency department to be evaluated for acute pulmonary pathology. She has a known history of type 1 diabetes. She appears in no acute respiratory distress upon arrival
--- NOTE | 2017-11-15 11:50 | Emergency Department Note ---
Disposition Clinical Impression: Acute exacerbation of chronic obstructive airways disease Pneumonia Qualifiers: Pneumonia type: due to unspecified organism Laterality: bilateral Lung location : lower lobe of lung Qualified Code(s): J18.1 - Lobar pneumonia, unspecified organism Acute and chronic respiratory failure Qualifiers: Respiratory failure complication: unspecified whether with hypoxia or hypercapnia Qualified Code(s): J96.20 - Acute and chronic respiratory failure, unspecified whether with hypoxia or hypercapnia Disposition: Admitted As Inpatient Condition: Fair Time of Disposition: 13:19 SOB HPI - General Chief Complaint: ED Shortness of Breath/Dyspnea Stated Complaint: Possible pneumonia Time Seen by Provider: 11/15/17 11:09 Source: EMS Limitations: no limitations Nursing Notes Reviewed: Yes Vital Signs Reviewed: Yes - History of Present Illness 82yo female transferred from pain management outpatient clinic for evaluation of temp 97F and bibasilar crackles. 6 days ago, patient began having a productive cough, gree/brown sputum as well as dyspnea. This has progressed. Not improved with her 3L NC baseline O2 or her nebulizer breathing treatments. She now has 4-5 work conversational dyspnea and requires 4L NC. She had shaking chills this morning. PMH: See kidney stage V not on dialysis, history of UTI, diabetes type 2 insulin -dependent, anemia of chronic kidney disease, emphysema, COPD on 3 L baseline home O2, spondylolysis of the lumbar region, cardiac arrhythmia. CODE STATUS: DNR-Comfort Care. Documentation provided by Lebron miles Eckerman and hard copy is on file. ROS: Positive: As above Negative: Nausea, vomiting, chest pains, palpitations, diaphoresis, abdominal pain, diarrhea, constipation, changes in urination - Related Data Home Medications Medication Instructions Recorded Confirmed Acetaminophen [Tylenol] 500 mg PO Q4H PRN 07/23/15 11/15/17 Allopurinol [Zyloprim 100 MG] 200 mg PO DAILY 07/23/15 11/15/17 Atorvastatin [Lipitor] 10 mg PO HS 07/23/15 11/15/17 Biotin 300 mcg PO DAILY 07/23/15 11/15/17 Buspirone HCl [Buspar] 10 mg PO BID 07/23/15 11/15/17 Fluticasone Propionate Nasal 2 spr NS DAILY 07/23/15 11/15/17 [Flonase] Gabapentin [Neurontin] 300 mg PO TID 07/23/15 11/15/17 Ipratropium/Albuterol Neb [Duoneb] 3 ml IH Q4HR PRN 07/23/15 11/15/17 Lactulose 30 ml PO DAILY 07/23/15 11/15/17 Magnesium Hydroxide [Milk of 30 ml PO DAILY PRN 07/23/15 11/15/17 Magnesia] Sennosides [Senna] 17.2 mg PO DAILY 07/23/15 11/15/17 cloNIDine HCl [CloNIDine HCl] 0.1 mg PO BID 07/23/15 11/15/17 Docusate Sodium [Dok] 200 mg PO DAILY 10/22/17 11/15/17 Oxybutynin Chloride [Ditropan Xl] 10 mg PO DAILY 10/22/17 11/15/17 Rivaroxaban [Xarelto] 15 mg PO DAILY 10/22/17 11/15/17 Torsemide [Demadex] 20 mg PO DAILY 10/22/17 11/15/17 Citalopram Hydrobromide [Celexa] 10 mg PO DAILY 11/15/17 11/15/17 Insulin DETEMIR [Levemir Flextouch] 20 unit SQ QPM 11/15/17 11/15/17 Insulin NPH Human Isophane 55 unit SQ QAM 11/15/17 11/15/17 [Novolin N] Insulin Regular, Human [Novolin R] 2 - 10 unit SQ BIDWM 11/15/17 11/15/17 Previous Rx's Medication Instructions Recorded Metoprolol XL (24 HR) Succ [Toprol 50 mg PO BID 30 Days #60 tab.er.24h 10/25/17 Xl] amLODIPine [Norvasc] 5 mg PO DAILY 30 Days #30 tablet 10/25/17 Allergies Allergy/AdvReac Type Severity Reaction Status Date / Time codeine AdvReac See Verified 06/02/15 08:41 Comments tuberculin,PPD,multi-puncture AdvReac See Verified 08/30/15 16:23 Comments All systems ED: reviewed and negative except as stated. Review of Systems: As Per HPI Past Medical History - Past Medical History Medical history: Reports: arthritis, CHF, COPD, coronary artery disease, diabetes, hyperlipidemia, hypertension, renal disease, other Surgical history: Reports: appendectomy, cataract, herniorrhaphy, hysterectomy, knee replacement, pacemaker/AICD, other Psychiatric history: Reports: anxiety, bipolar - Social History Smoking Status: Never smoker Smokeless Tobacco Status: No Alcohol use: Reports: none Drug use: Reports: none Physical Exam Vital Signs Reviewed General: Patient is alert, oriented, and in mild respiratory distress. Head: atraumatic, normocephalic Eye: normal appearance, PERRL, EOMI, no scleral icterus, no conjunctival injection ENT: mucous membranes moist, normal external ear exam Neck: normal inspection, trachea midline, full ROM Chest: normal inspection, symmetric chest rise Respiratory: Poor respiratory effort. Prolonged expiratory phase. Bilateral breath sounds are equal with bibasilar crackles and scant wheeze. Cardiovascular: Regular rate and rhythm. No clicks, rubs, gallops, or murmors. Normal heart sounds. No pedal edema. Abdomen: Obese. Bowel sounds present normoactive x-4 quadrants. Abdomen is soft, nondistended, and nontender. No guarding or rebound. Musculoskeletal: Spontaneously moving all extremities. Skin: warm, dry, intact. Neuro: Alert and oriented x4. Sensation light touch intact. Psych: Patient's affect is appropriate for situation. - General Limitations: no limitations General appearance: alert, in no apparent distress Course Course Narrative: Concern for pneumonia based on clinical exam and history. Given her underlying wheeze, will begin duo nebs and steroids. Hold on antibiotics pending chest x- ray. Chest x-ray read by radiology is unremarkable. Still have strong clinical suspicion for pneumonia. This obese. Patient has no leukocytosis however, she is diabetic and elderly. Though she does have elevated creatinine of 1.5, this is better than her baseline. She continues to require 4 L nasal cannula which is above her baseline of 3. 13:50 Discussed the patient with the admitting hospitalist, Dr. Yap, who agrees to accept the patient. He recommends beginning Levaquin at this time and is aware that she has already had steroids. Chest X-Ray 11/15/17 11:23 IMPRESSION: No acute process. Stable cardiomegaly D/ / Fuentes Warner MD / Fuentes Warner MD Interpreting Provider: Fuentes Warner MD Vital Signs Temperature 97.5 F L 11/15/17 11:19 Pulse Rate 61 11/15/17 11:19 Respiratory Rate 20 11/15/17 11:19 Blood Pressure 131/78 11/15/17 11:19 O2 Sat by Pulse Oximetry 100 11/15/17 11:19 Temperature 97.5 F L 11/15/17 11:19 Pulse Rate 64 11/15/17 12:48 Respiratory Rate 22 11/15/17 12:48 Blood Pressure 152/107 11/15/17 12:48 O2 Sat by Pulse Oximetry 100 11/15/17 12:48 Oxygen Delivery Oxygen Delivery Room Air Shortness of Breath/Dyspnea - Lab Data Result diagrams: 11/15/17 11:39 11/15/17 11:39 Lab Results 11/15/17 11/15/17 11/15/17 Range/Units 11:23 11:39 11:39 WBC 10.0 (4.3-11.1) K/mcL RBC 3.85 (3.82-4.97) M/mcL Hgb 12.0 (11.5-15.4) g/dL Hct 37.0 (35.3-44.9) % MCV 96.1 (83.0-100.0) fL MCH 31.2 (28.0-33.3) pg MCHC 32.4 (31.6-35.5) g/dL RDW 14.8 H (11.5-14.5) % Plt Count 277 (140-400) K/mcL MPV 9.5 (9.4-12.4) fL Immature Gran % 0.6 (0-4) % Seg Neutrophils % 79.3 % Lymphocytes % 14.8 % Monocytes % 3.7 % Eosinophils % 1.2 % Basophils % 0.4 % Neutrophils # 7.9 (1.6-8.9) K/mcL Lymphocytes # 1.5 (0.6-4.6) K/mcL Monocytes # 0.4 (0.0-1.3) K/mcL Eosinophils # 0.1 (0.0-0.6) K/mcL Basophils # 0.0 (0.0-0.2) K/mcL Sodium 141 (136-145) mEq/L Potassium 3.8 (3.5-5.1) mEq/L Chloride 102 (98-107) mEq/L Carbon Dioxide 31 H (23-29) mEq/L BUN 34 H (8-23) mg/dL Creatinine 1.50 H (0.60-1.20) mg/dL Est GFR ( Amer) 40 L (> 60) Est GFR (Non-Af Amer) 33 L (> 60) BUN/Creatinine Ratio 23 (6-26) Glucose 71 (70-105) mg/dL Calculated Osmolality 298 (280-300) Lactic Acid (0.5-2.2) mmol/L Calcium 9.3 (8.6-10.3) mg/dL Troponin I < 0.03 (< 0.04) ng/mL B-Natriuretic Peptide 74 (Less than 100) pg/mL 11/15/17 Range/Units 11:39 WBC (4.3-11.1) K/mcL RBC (3.82-4.97) M/mcL Hgb (11.5-15.4) g/dL Hct (35.3-44.9) % MCV (83.0-100.0) fL MCH (28.0-33.3) pg MCHC (31.6-35.5) g/dL RDW (11.5-14.5) % Plt Count (140-400) K/mcL MPV (9.4-12.4) fL Immature Gran % (0-4) % Seg Neutrophils % % Lymphocytes % % Monocytes % % Eosinophils % % Basophils % % Neutrophils # (1.6-8.9) K/mcL Lymphocytes # (0.6-4.6) K/mcL Monocytes # (0.0-1.3) K/mcL Eosinophils # (0.0-0.6) K/mcL Basophils # (0.0-0.2) K/mcL Sodium (136-145) mEq/L Potassium (3.5-5.1) mEq/L Chloride (98-107) mEq/L Carbon Dioxide (23-29) mEq/L BUN (8-23) mg/dL Creatinine (0.60-1.20) mg/dL Est GFR ( Amer) (> 60) Est GFR (Non-Af Amer) (> 60) BUN/Creatinine Ratio (6-26) Glucose (70-105) mg/dL Calculated Osmolality (280-300) Lactic Acid 1.0 (0.5-2.2) mmol/L Calcium (8.6-10.3) mg/dL Troponin I (< 0.04) ng/mL B-Natriuretic Peptide (Less than 100) pg/mL
[2017-11-15 12:00] LABS: Basophils % 0.4 %; Eosinophils # 0.1 K/mcL (0.0-0.6); Eosinophils % 1.2 %; Immature Granulocytes % 0.6 % (0-4); Lymphocytes # 1.5 K/mcL (0.6-4.6); Lymphocytes % 14.8 %; Mean Corpuscular HGB Conc 32.4 g/dL (31.6-35.5); Mean Corpuscular Hemoglobin 31.2 pg (28.0-33.3); Mean Corpuscular Volume 96.1 fL (83.0-100.0); Mean Platelet Volume 9.5 fL (9.4-12.4); Monocytes # 0.4 K/mcL (0.0-1.3); Monocytes % 3.7 %; Neutrophils # 7.9 K/mcL (1.6-8.9); Platelet Count 277 K/mcL (140-400); Red Blood Count 3.85 M/mcL (3.82-4.97); Red Cell Distribution Width 14.8 % (11.5-14.5); Segmented Neutrophils % 79.3 %
[2017-11-15 12:15] LABS: Troponin I < 0.03 ng/mL (< 0.04)
[2017-11-15 12:35] LABS: BUN/Creatinine Ratio 23 (6-26); Blood Urea Nitrogen 34 mg/dL (8-23); Calcium 9.3 mg/dL (8.6-10.3); Carbon Dioxide 31 mEq/L (23-29); Chloride 102 mEq/L (98-107); Glucose 71 mg/dL (70-105); Osmolality,Calculated 298 (280-300); Potassium 3.8 mEq/L (3.5-5.1); Sodium 141 mEq/L (136-145); eGFR For Non-African Americans 33 (> 60)
[2017-11-15] MEDS ORDERED: Levofloxacin 750 MG/150 ML 750 MG/150 ML BAG IVPB ONE (13:16)
--- NOTE | 2017-11-15 14:54 | Internal Med History&Physical ---
Date of Encounter: 11/15/17 Time of Encounter: 14:30 Internal Medicine - H&P: HPI Chief complaint: Shortness of breath Admitted From: Long-term Nursing Facility History of present illness: Patient is an 82-year-old female with past medical history significant for COPD , pacemaker coronary arterial disease, CHF, DVTs, chronic kidney disease stage III, GISELE, obesity and mood disorder who presents to the ER on 11/15/17 due to shortness of breath and productive cough. Patient reports that her shortness of breath has worsened over the last week in addition to productive cough for the last 2-3 days. Patient also reports of wheezing denies fevers/chills. She was sent by [facility] to the ER for further evaluation. In the ER, patient was found to be afebrile and without. Chest x-ray revealed no infiltrates. She will be admitted to the medical surgical floor for management of COPD exacerbation. Past Med Surg Social Fam HX - Past Medical History Medical history: arthritis, CHF, COPD, coronary artery disease, diabetes, hyperlipidemia, hypertension, renal disease, other Additional medical history: acute renal failure, lumbar DDD, dementia, angina, neuropathy, anemia, pacemaker,sleep apnea with CPAP, left breast nodule Psychiatric history: anxiety, bipolar - Past Surgical History Surgical History: appendectomy, cataract, herniorrhaphy, hysterectomy, knee replacement, pacemaker/AICD, other Additional surgical history: pain pump - Social History Smoking Status: Never smoker Smokeless Tobacco Status: No Alcohol use: none Drug use: none - Family History Brother Hx Family Endocrine Disorder: Yes Internal Medicine - H&P: Meds Acetaminophen [Tylenol] 500 mg PO Q4H PRN 07/23/15 [History] Allopurinol [Zyloprim 100 MG] 200 mg PO DAILY 07/23/15 [History] Atorvastatin [Lipitor] 10 mg PO HS 07/23/15 [History] Biotin 300 mcg PO DAILY 07/23/15 [History] Buspirone HCl [Buspar] 10 mg PO BID 07/23/15 [History] Fluticasone Propionate Nasal [Flonase] 2 spr NS DAILY 07/23/15 [History] Gabapentin [Neurontin] 300 mg PO TID 07/23/15 [History] Ipratropium/Albuterol Neb [Duoneb] 3 ml IH Q4HR PRN 07/23/15 [History] Lactulose 30 ml PO DAILY 07/23/15 [History] Magnesium Hydroxide [Milk of Magnesia] 30 ml PO DAILY PRN 07/23/15 [History] Sennosides [Senna] 17.2 mg PO DAILY 07/23/15 [History] cloNIDine HCl [CloNIDine HCl] 0.1 mg PO BID 07/23/15 [History] Docusate Sodium [Dok] 200 mg PO DAILY 10/22/17 [History] Oxybutynin Chloride [Ditropan Xl] 10 mg PO DAILY 10/22/17 [History] Rivaroxaban [Xarelto] 15 mg PO DAILY 10/22/17 [History] Torsemide [Demadex] 20 mg PO DAILY 10/22/17 [History] Metoprolol XL (24 HR) Succ [Toprol Xl] 50 mg PO BID 30 Days #60 tab.er.24h 10/25 [Rx] amLODIPine [Norvasc] 5 mg PO DAILY 30 Days #30 tablet 10/25/17 [Rx] Citalopram Hydrobromide [Celexa] 10 mg PO DAILY 11/15/17 [History] Insulin DETEMIR [Levemir Flextouch] 20 unit SQ QPM 11/15/17 [History] Insulin NPH Human Isophane [Novolin N] 55 unit SQ QAM 11/15/17 [History] Insulin Regular, Human [Novolin R] 2 - 10 unit SQ BIDWM 11/15/17 [History] 3 Allergy/AdvReac Type Severity Reaction Status Date / Time codeine AdvReac See Verified 06/02/15 08:41 Comments tuberculin,PPD,multi-puncture AdvReac See Verified 08/30/15 16:23 Comments All Systems PM: A 10-system review of systems was performed and is negative for pertinent findings except as documented above in the HPI. - Constitutional Vitals: Temp Pulse Resp BP Pulse Ox 97.5 F L 64 22 152/107 100 11/15/17 11:19 11/15/17 12:48 11/15/17 12:48 11/15/17 12:48 11/15/17 12:48 General appearance: Present: A&O X 3 Exam: As below - Eye Eye exam: Present: normal appearance - ENT ENT exam: Present: mucous membranes moist - Respiratory Respiratory exam: Present: CTAB. Absent: accessory muscle use, rales, rhonchi, wheezes - Cardiovascular Cardiovascular exam: Present: RRR, +S1, +S2. Absent: diastolic murmur, gallop, rubs, systolic murmur - GI/Abdominal GI/Abdominal exam: Present: normal bowel sounds, soft, no peritoneal signs. Absent: distended, tenderness - Extremities Exam Extremities exam: Absent: pedal edema - Neurological Exam Neurological exam: Present: oriented X3 - Psychiatric Psychiatric exam: Present: normal mood - Skin Skin exam: Present: normal color Internal Med - H&P Results - Labs CBC & Chem 7: 11/15/17 11:39 11/15/17 11:39 - Assessment and plan (1) Acute exacerbation of chronic obstructive airways disease Current Visit: Yes Status: Acute Assessment and plan: Patient reports that her shortness of breath has worsened over the last week in addition to productive cough for the last 2-3 days. In the ER, patient was found to be afebrile and without. Chest x-ray revealed no infiltrates. Suspect COPD exacerbation secondary to bacterial infection with productive cough. Will continue IV antibiotics with IV azithromycin in addition to IV Solu-Medrol and scheduled DuoNeb's. Patient currently on baseline O2 requirements and will continue to monitor. (2) Acute and chronic respiratory failure Current Visit: Yes Status: Acute Assessment and plan: Patient reports of being on 4 L of nasal cannula at the [facility] and currently on 4 L this afternoon Will continue to monitor on pulse oximetry Qualifiers: Respiratory failure complication: unspecified whether with hypoxia or hypercapnia Qualified Code(s): J96.20 - Acute and chronic respiratory failure , unspecified whether with hypoxia or hypercapnia (3) HTN (hypertension) Current Visit: No Status: Acute Assessment and plan: Will continue patient's home blood pressure medications Qualifiers: Hypertension type: unspecified Qualified Code(s): I10 - Essential (primary ) hypertension (4) Insulin-requiring or dependent type II diabetes mellitus Current Visit: No Status: Acute Assessment and plan: We will continue patient's long-acting insulin (5) Paroxysmal A-fib Current Visit: No Status: Acute Assessment and plan: Will continue patient's home dose of Xarelto (6) CKD (chronic kidney disease) stage 3, GFR 30-59 ml/min Current Visit: No Status: Chronic Assessment and plan: Patient's creatinine on admission is 1.50 which is close to baseline (Scr baseline ~ 1.5-1.6) Will continue to monitor (7) Sleep apnea Current Visit: No Status: Chronic Assessment and plan: She will need BiPAP daily at bedtime Qualifiers: Sleep apnea type: obstructive Qualified Code(s): G47.33 - Obstructive sleep apnea (adult) (pediatric) (8) Morbid obesity due to excess calories Current Visit: No Status: Chronic Assessment and plan: Lifestyle modifications (9) DVT prophylaxis Current Visit: No Status: Acute Assessment and plan: Patient on Xarelto - Time Spent With Patient Total time spent is greater than 50% in coordination of care (as documented) at patient's floor/unit and/or counseling patient:
[2017-11-15] MEDS ORDERED: Naloxone 0.4 MG/ML INJ IVP PRN (15:14)
[2017-11-15] MEDS ORDERED: MOM Conc 10 ML UD.LIQ PO PRN (15:22)
[2017-11-15] MEDS: Ipratropium/Albuterol Neb 3 ML IH SCH ×3 (16:38→23:47)
[2017-11-15] MEDS: Azithromycin 500 MG in D5% in Water 250 ML IVPB SCH (16:47)
[2017-11-15] MEDS: methylPREDNISolone 125 MG/2 ML VIAL IVP SCH ×2 (16:47→23:40)
[2017-11-15] MEDS ORDERED: Dextrose Gel 15 GM/37.5 ML TUBE PO PRN ×2 (21:26)
[2017-11-15] MEDS ORDERED: *HR* Dextrose 50 % in Water (Syg) 50 ML SYRINGE IVP PRN (21:26)
[2017-11-15] MEDS ORDERED: D5% in Water 1,000 ML IVC PRN (21:26)
[2017-11-15] MEDS ORDERED: Insulin LISPRO 300 UNITS/3 ML VIAL SQ SCH (21:30)
[2017-11-15] MEDS: cloNIDine HCl 0.1 MG TABLET PO SCH (22:05)
[2017-11-15] MEDS: Gabapentin 300 MG CAPSULE PO SCH (22:05)
[2017-11-15] MEDS: Metoprolol XL (24 HR) Succ 50 MG TAB.ER.24H PO SCH (22:05)
[2017-11-15] MEDS: Insulin DETEMIR 100 UNIT/ML X5UNITS SQ SCH (23:41)
[2017-11-16 03:49] LABS: Basophils % 0.1 %; Immature Granulocytes % 1.6 % (0-4); Immature Platelets 2.1 % (1.1-6.1); Lymphocytes # 0.8 K/mcL (0.6-4.6); Lymphocytes % 11.2 %; Mean Corpuscular HGB Conc 33.3 g/dL (31.6-35.5); Mean Corpuscular Hemoglobin 30.6 pg (28.0-33.3); Mean Corpuscular Volume 91.7 fL (83.0-100.0); Mean Platelet Volume 9.3 fL (9.4-12.4); Monocytes % 0.3 %; Platelet Count 290 K/mcL (140-400); Red Cell Distribution Width 14.8 % (11.5-14.5); Segmented Neutrophils % 86.8 %
[2017-11-16 04:11] LABS: Calcium 9.1 mg/dL (8.6-10.3); Potassium 4.4 mEq/L (3.5-5.1)
[2017-11-16] MEDS: Ipratropium/Albuterol Neb 3 ML IH SCH ×6 (04:31→23:25)
[2017-11-16] MEDS: Insulin NPH 100 UNIT/ML (x5UNIT) SQ SCH (07:58)
[2017-11-16] MEDS: Insulin LISPRO 300 UNITS/3 ML VIAL SQ SCH ×3 (07:59→17:05)
[2017-11-16] MEDS: methylPREDNISolone 125 MG/2 ML VIAL IVP SCH (07:59)
[2017-11-16] MEDS: Torsemide 20 MG TABLET PO SCH (07:59)
[2017-11-16] MEDS: Sennosides 8.6 MG TABLET PO SCH (07:59)
[2017-11-16] MEDS: cloNIDine HCl 0.1 MG TABLET PO SCH ×2 (08:00→20:27)
[2017-11-16] MEDS: Metoprolol XL (24 HR) Succ 50 MG TAB.ER.24H PO SCH ×2 (08:00→20:27)
[2017-11-16] MEDS: *HR* Rivaroxaban 15 MG TABLET PO SCH (08:00)
[2017-11-16] MEDS: Gabapentin 300 MG CAPSULE PO SCH ×3 (08:00→20:27)
[2017-11-16] MEDS: amLODIPine 5 MG TABLET PO SCH (08:00)
[2017-11-16] MEDS ORDERED: (Biotin [Biotin] 300 MCG) PO SCH (09:00)
--- NOTE | 2017-11-16 09:34 | Internal Med Progress Note ---
Hospitalist Progress Note - Encounter Date of Encounter: 11/16/17 Time of Encounter: 11:00 - Subjective Interval History: Patient admitted for COPD exacerbation improving this morning without fevers or leukocytosis. Patient also on baseline supplemental oxygenation. Will plan for 1 more additional day of IV antibiotics - Exam Vitals: Temp Pulse Resp BP Pulse Ox 98.2 F 61 15 139/68 98 11/16/17 06:57 11/16/17 06:57 11/16/17 07:20 11/16/17 06:57 11/16/17 07:20 Exam: Gen.: Nonacute distress, alert and oriented 3 ENT: Mucosal membranes moist Respiratory: Lungs are clear to auscultation bilaterally without any wheezing rhonchi or rales Cardiovascular: Normal S1 and S2 regular rate rhythm no murmurs rubs or gallops Abdomen: Soft, nontender and nondistended with positive bowel sounds Extremities: No lower extremity edema Skin: Normal color - Assessment and Plan (1) Acute exacerbation of chronic obstructive airways disease Current Visit: Yes Status: Acute Assessment and Plan: In the ER, patient was found to be afebrile and without. Chest x-ray revealed no infiltrates. Suspect COPD exacerbation secondary to bacterial infection with productive cough. Will continue day 2 of IV azithromycin in addition to IV Solu-Medrol and scheduled DuoNeb's. Patient currently on baseline O2 requirements and will continue to monitor. (2) Acute and chronic respiratory failure Current Visit: Yes Status: Resolved Assessment and Plan: Resolved as patient is currently on baseline O2 requirements Will continue to monitor on pulse oximetry (3) Insulin-requiring or dependent type II diabetes mellitus Current Visit: No Status: Acute Assessment and Plan: Patient's serum blood glucose levels elevated this morning at 319; patient's A1c 9.2 on 10/2017 Patient currently on insulin human NPH 55 units every a.m. and Levemir 20 units every evening Patient also on IV Solu-Medrol Continue coverage with sliding-scale insulin and monitor (4) HTN (hypertension) Current Visit: No Status: Acute Assessment and Plan: Controlled; continue home medications (5) Paroxysmal A-fib Current Visit: No Status: Acute Assessment and Plan: Continue beta katelyn and oral anticoagulation with Xarelto (6) CKD (chronic kidney disease) stage 3, GFR 30-59 ml/min Current Visit: No Status: Chronic Assessment and Plan: Patient's creatinine on admission was 1.50 and this morning is 1.69 which is close to baseline (Scr baseline ~ 1.5-1.6) Will continue to monitor (7) Sleep apnea Current Visit: No Status: Chronic Assessment and Plan: She will need BiPAP daily at bedtime (8) Morbid obesity due to excess calories Current Visit: No Status: Chronic Assessment and Plan: Lifestyle modifications DVT Prophylaxis: Patient on Xarelto - Time Spent with Patient Total time spent is greater than 50% in coordination of care (as documented) at patient's floor/unit and/or counseling patient: Internal Medicine: Result - Labs CBC & Chem 7: 11/16/17 03:35 11/16/17 03:35 Labs: Short CBC 11/16/17 Range/Units 03:35 WBC 6.9 (4.3-11.1) K/mcL Hgb 11.0 L (11.5-15.4) g/dL Hct 33.0 L (35.3-44.9) % Plt Count 290 (140-400) K/mcL Neutrophils # 6.0 (1.6-8.9) K/mcL BMP 11/16/17 03:35 Sodium 134 L Potassium 4.4 Chloride 97 L Carbon Dioxide 29 BUN 40 H Creatinine 1.69 H Glucose 357 H Calcium 9.1 Consult Discharge Plan - Plan Referrals: Salomon Cazares [Primary Care Provider] - (2) Acute and chronic respiratory failure Qualifiers: Respiratory failure complication: unspecified whether with hypoxia or hypercapnia Qualified Code(s): J96.20 - Acute and chronic respiratory failure, unspecified whether with hypoxia or hypercapnia (4) HTN (hypertension) Qualifiers: Hypertension type: unspecified Qualified Code(s): I10 - Essential (primary) hypertension (7) Sleep apnea Qualifiers: Sleep apnea type: obstructive Qualified Code(s): G47.33 - Obstructive sleep apnea (adult) (pediatric)
[2017-11-16] MEDS: Fluticasone Propionate Nasal 50 MCG/SPRAY BOTTLE NS SCH (12:01)
[2017-11-16] MEDS ORDERED: Insulin LISPRO 300 UNITS/3 ML VIAL SQ SCH (14:32)
[2017-11-16] MEDS: Azithromycin 500 MG in D5% in Water 250 ML IVPB SCH (15:51)
[2017-11-16] MEDS: Insulin DETEMIR 100 UNIT/ML X5UNITS SQ SCH (20:27)
[2017-11-17] MEDS: Ipratropium/Albuterol Neb 3 ML IH SCH ×4 (04:22→15:33)
[2017-11-17] MEDS: Metoprolol XL (24 HR) Succ 50 MG TAB.ER.24H PO SCH (08:47)
[2017-11-17] MEDS: amLODIPine 5 MG TABLET PO SCH (08:47)
[2017-11-17] MEDS: Gabapentin 300 MG CAPSULE PO SCH ×2 (08:47→14:33)
[2017-11-17] MEDS: Sennosides 8.6 MG TABLET PO SCH (08:47)
[2017-11-17] MEDS: Torsemide 20 MG TABLET PO SCH (08:47)
[2017-11-17] MEDS: *HR* Rivaroxaban 15 MG TABLET PO SCH (08:47)
[2017-11-17] MEDS: cloNIDine HCl 0.1 MG TABLET PO SCH (08:48)
[2017-11-17] MEDS: Fluticasone Propionate Nasal 50 MCG/SPRAY BOTTLE NS SCH (08:50)
[2017-11-17] MEDS: Insulin LISPRO 300 UNITS/3 ML VIAL SQ SCH ×2 (08:51→11:44)
[2017-11-17] MEDS: Insulin NPH 100 UNIT/ML (x5UNIT) SQ SCH (08:52)
[2017-11-17] MEDS ORDERED: predniSONE 20 MG TABLET PO SCH (09:00)
[2017-11-17 10:31] VITALS: BP 123/66
[2017-11-17] MEDS: Azithromycin 500 MG in D5% in Water 250 ML IVPB SCH (12:53)
--- NOTE | 2017-11-17 14:53 | Physician Discharge Referral ---
ExtendedCare Referral Info Institutional Level of Care: Intermediate - Diagnosis (1) Acute exacerbation of chronic obstructive airways disease Status: Acute (2) Acute and chronic respiratory failure Status: Resolved (3) Insulin-requiring or dependent type II diabetes mellitus Status: Acute (4) HTN (hypertension) Status: Acute (5) Paroxysmal A-fib Status: Acute (6) CKD (chronic kidney disease) stage 3, GFR 30-59 ml/min Status: Chronic (7) Sleep apnea Status: Chronic (8) Morbid obesity due to excess calories Status: Chronic - Transfer Medications Prescriptions: Azithromycin [Zithromax] 250 mg PO DAILY 5 Days #10 tablet Home Medications: Acetaminophen [Tylenol] 500 mg PO Q4H PRN 07/23/15 [History] Allopurinol [Zyloprim 100 MG] 200 mg PO DAILY 07/23/15 [History] Atorvastatin [Lipitor] 10 mg PO HS 07/23/15 [History] Biotin 300 mcg PO DAILY 07/23/15 [History] Buspirone HCl [Buspar] 10 mg PO BID 07/23/15 [History] Fluticasone Propionate Nasal [Flonase] 2 spr NS DAILY 07/23/15 [History] Gabapentin [Neurontin] 300 mg PO TID 07/23/15 [History] Ipratropium/Albuterol Neb [Duoneb] 3 ml IH Q4HR PRN 07/23/15 [History] Lactulose 30 ml PO DAILY 07/23/15 [History] Magnesium Hydroxide [Milk of Magnesia] 30 ml PO DAILY PRN 07/23/15 [History] Sennosides [Senna] 17.2 mg PO DAILY 07/23/15 [History] cloNIDine HCl [CloNIDine HCl] 0.1 mg PO BID 07/23/15 [History] Docusate Sodium [Dok] 200 mg PO DAILY 10/22/17 [History] Oxybutynin Chloride [Ditropan Xl] 10 mg PO DAILY 10/22/17 [History] Rivaroxaban [Xarelto] 15 mg PO DAILY 10/22/17 [History] Torsemide [Demadex] 20 mg PO DAILY 10/22/17 [History] Metoprolol XL (24 HR) Succ [Toprol Xl] 50 mg PO BID 30 Days #60 tab.er.24h 10/25 [Rx] amLODIPine [Norvasc] 5 mg PO DAILY 30 Days #30 tablet 10/25/17 [Rx] Citalopram Hydrobromide [Celexa] 10 mg PO DAILY 11/15/17 [History] Insulin DETEMIR [Levemir Flextouch] 20 unit SQ QPM 11/15/17 [History] Insulin NPH Human Isophane [Novolin N] 55 unit SQ QAM 11/15/17 [History] Insulin Regular, Human [Novolin R] 2 - 10 unit SQ BIDWM 11/15/17 [History] Azithromycin [Zithromax] 250 mg PO DAILY 5 Days #10 tablet 11/17/17 [Rx] Allergies/Adverse Reactions: 3 Allergy/AdvReac Type Severity Reaction Status Date / Time codeine AdvReac See Verified 06/02/15 08:41 Comments tuberculin,PPD,multi-puncture AdvReac See Verified 08/30/15 16:23 Comments - Respiratory Orders Smoking Cessation: Smoking cessation has been advised. For more information, call the [place] Tobacco Quit Line at 5-808-FZRW-NOW. CERTIFICATION: I certify that the transfer of the above named patient to an Extended Care Facility is necessary for the continuing treatment of the diagnosis listed. The above information is true and accurate reflection of patient's current condition. Confidential - Redisclosure prohibited without a patient's written consent.
--- NOTE | 2017-11-17 14:53 | Discharge Summary ---
- NOTES TO OUTPATIENT PROVIDER Notes to Outpatient Provider: none Date of Encounter: 11/17/17 Time of Encounter: 11:00 - Discharge Diagnosis (1) Acute exacerbation of chronic obstructive airways disease Priority: Primary Status: Acute (2) Acute and chronic respiratory failure Priority: Primary Status: Resolved Qualifiers: Respiratory failure complication: unspecified whether with hypoxia or hypercapnia Qualified Code(s): J96.20 - Acute and chronic respiratory failure , unspecified whether with hypoxia or hypercapnia (3) Insulin-requiring or dependent type II diabetes mellitus Priority: Secondary Status: Acute (4) HTN (hypertension) Priority: Secondary Status: Acute Qualifiers: Hypertension type: unspecified Qualified Code(s): I10 - Essential (primary ) hypertension (5) Paroxysmal A-fib Priority: Secondary Status: Acute (6) CKD (chronic kidney disease) stage 3, GFR 30-59 ml/min Priority: Secondary Status: Chronic (7) Sleep apnea Priority: Secondary Status: Chronic Qualifiers: Sleep apnea type: obstructive Qualified Code(s): G47.33 - Obstructive sleep apnea (adult) (pediatric) (8) Morbid obesity due to excess calories Priority: Secondary Status: Chronic Hospital course: Patient is an 82-year-old female with past medical history significant for COPD , pacemaker coronary arterial disease, CHF, DVTs, chronic kidney disease stage III, GISELE, obesity and mood disorder who presents to the ER on 11/15/17 due to shortness of breath and productive cough. Patient reports that her shortness of breath has worsened over the last week in addition to productive cough for the last 2-3 days. Patient also reports of wheezing denies fevers/chills. She was sent by [facility] to the ER for further evaluation. In the ER, patient was found to be afebrile and without. Chest x-ray revealed no infiltrates. She will be admitted to the medical surgical floor for management of COPD exacerbation. During patients hospital stay her symptoms resolved on IV azithromycin with scheduled DuoNeb. Patient is medically stable to be discharged back to halfway facility to continue a 5 day course of azithromycin. - Time Spent with Patient Total time spent providing and/or coordinating discharge services: Less than 30 minutes - Discharge Medications Prescriptions: Azithromycin [Zithromax] 250 mg PO DAILY 5 Days #10 tablet Home Medications: Acetaminophen [Tylenol] 500 mg PO Q4H PRN 07/23/15 [History] Allopurinol [Zyloprim 100 MG] 200 mg PO DAILY 07/23/15 [History] Atorvastatin [Lipitor] 10 mg PO HS 07/23/15 [History] Biotin 300 mcg PO DAILY 07/23/15 [History] Buspirone HCl [Buspar] 10 mg PO BID 07/23/15 [History] Fluticasone Propionate Nasal [Flonase] 2 spr NS DAILY 07/23/15 [History] Gabapentin [Neurontin] 300 mg PO TID 07/23/15 [History] Ipratropium/Albuterol Neb [Duoneb] 3 ml IH Q4HR PRN 07/23/15 [History] Lactulose 30 ml PO DAILY 07/23/15 [History] Magnesium Hydroxide [Milk of Magnesia] 30 ml PO DAILY PRN 07/23/15 [History] Sennosides [Senna] 17.2 mg PO DAILY 07/23/15 [History] cloNIDine HCl [CloNIDine HCl] 0.1 mg PO BID 07/23/15 [History] Docusate Sodium [Dok] 200 mg PO DAILY 10/22/17 [History] Oxybutynin Chloride [Ditropan Xl] 10 mg PO DAILY 10/22/17 [History] Rivaroxaban [Xarelto] 15 mg PO DAILY 10/22/17 [History] Torsemide [Demadex] 20 mg PO DAILY 10/22/17 [History] Metoprolol XL (24 HR) Succ [Toprol Xl] 50 mg PO BID 30 Days #60 tab.er.24h 10/25 [Rx] amLODIPine [Norvasc] 5 mg PO DAILY 30 Days #30 tablet 10/25/17 [Rx] Citalopram Hydrobromide [Celexa] 10 mg PO DAILY 11/15/17 [History] Insulin DETEMIR [Levemir Flextouch] 20 unit SQ QPM 11/15/17 [History] Insulin NPH Human Isophane [Novolin N] 55 unit SQ QAM 11/15/17 [History] Insulin Regular, Human [Novolin R] 2 - 10 unit SQ BIDWM 11/15/17 [History] Azithromycin [Zithromax] 250 mg PO DAILY 5 Days #10 tablet 11/17/17 [Rx] Allergies/Adverse Reactions: 3 Allergy/AdvReac Type Severity Reaction Status Date / Time codeine AdvReac See Verified 06/02/15 08:41 Comments tuberculin,PPD,multi-puncture AdvReac See Verified 08/30/15 16:23 Comments Date of admission: 11/15/17 15:33 Primary care physician: Salomon Cazares - Constitutional Vitals: Temp Pulse Resp BP Pulse Ox 98.2 F 70 16 123/66 96 11/17/17 10:29 11/17/17 10:29 11/17/17 11:12 11/17/17 10:29 11/17/17 11:12 General appearance: Present: A&O X 3 Exam: Gen.: Nonacute distress, alert and oriented 3 ENT: Mucosal membranes moist Respiratory: Lungs are clear to auscultation bilaterally without any wheezing rhonchi or rales - Patient Status Disposition: Transfer SNF Condition: Fair - Discharge Instructions Follow Up With: Salomon Cazares [Primary Care Provider] -
== END 2017-11-17 15:49 | DRG 190 ==
LOC: EMEROOARM 11:07 → 3ANU 11:07 → SUATTDRO 15:33
PROVIDERS: ADMIT Student in an Organized Health Care Education/Training Program; ATTEND Hospitalist

== ENCOUNTER 2019-11-25 12:34 | Inpatient (IN) ==
[2019-11-25] MEDS ORDERED: Naloxone 0.4 MG/ML INJ IVP PRN (14:12)
[2019-11-25] MEDS ORDERED: *HR* Dextrose 50 % in Water (Vial) 50 ML VIAL IVP PRN (14:14)
[2019-11-25] MEDS ORDERED: Dextrose Gel 15 GM/37.5 ML TUBE PO PRN ×2 (14:14)
[2019-11-25] MEDS ORDERED: D5% in Water 1,000 ML IVC PRN (14:14)
[2019-11-25] MEDS ORDERED: Acetaminophen 325 MG TABLET PO PRN (14:50)
[2019-11-25 15:01] LABS: Hematocrit 33.1 % (35.3-44.9); Hemoglobin 10.5 g/dL (11.5-15.4); Mean Corpuscular HGB Conc 31.7 g/dL (31.6-35.5); Mean Corpuscular Hemoglobin 31.3 pg (28.0-33.3); Mean Corpuscular Volume 98.5 fL (83.0-100.0); Mean Platelet Volume 9.6 fL (9.4-12.4); Platelet Count 232 K/mcL (140-400); Red Blood Count 3.36 M/mcL (3.82-4.97); White Blood Count 9.5 K/mcL (4.3-11.1)
[2019-11-25 15:19] LABS: Calcium 9.3 mg/dL (8.6-10.3); Potassium 3.6 mEq/L (3.5-5.1)
[2019-11-25 15:24] LABS: INR 1.2
[2019-11-25 15:26] LABS: Activated Partial Thrombo Time 37.9 Seconds (26.0-36.0)
[2019-11-25] MEDS ORDERED: 0.9 % Sodium Chloride 1,000 ML IVC SCH (17:30)
[2019-11-25] MEDS ORDERED: Ipratropium/Albuterol Neb 3 ML IH PRN (17:33)
[2019-11-25] MEDS: Insulin LISPRO 300 UNITS/3 ML VIAL SQ SCH (18:28)
[2019-11-25 18:36] LABS: Adenovirus Not Detected (Not Detect); Coronavirus 229E Not Detected (Not Detect); Coronavirus HKU1 Not Detected (Not Detect); Coronavirus NL63 Not Detected (Not Detect); Coronavirus OC43 Not Detected (Not Detect); SARS-CoV-2 Not Detected (Not Detect)
[2019-11-25 18:37] LABS: Bordetella Pertussis Not Detected (Not Detect); Chlamydophila pneumoniae Not Detected (Not Detect); Human Metapneumovirus Not Detected (Not Detect); Human Rhinovirus/Enterovirus Not Detected (Not Detect); Influenza A Subtype 2009 H1 Not Detected (Not Detect); Influenza B Not Detected (Not Detect); Mycoplasma pneumoniae Not Detected (Not Detect); Parainfluenza Virus 1 Not Detected (Not Detect); Parainfluenza Virus 2 Not Detected (Not Detect); Parainfluenza Virus 3 Not Detected (Not Detect); Parainfluenza Virus 4 Not Detected (Not Detect); Respiratory Syncytial Virus Not Detected (Not Detect)
[2019-11-26] MEDS: Insulin LISPRO 300 UNITS/3 ML VIAL SQ SCH ×4 (00:33→18:24)
[2019-11-26 05:31] LABS: Hematocrit 29.9 % (35.3-44.9); Hemoglobin 9.6 g/dL (11.5-15.4); Mean Corpuscular HGB Conc 32.1 g/dL (31.6-35.5); Mean Corpuscular Hemoglobin 31.5 pg (28.0-33.3); Mean Platelet Volume 9.5 fL (9.4-12.4); Platelet Count 182 K/mcL (140-400); Red Blood Count 3.05 M/mcL (3.82-4.97); Red Cell Distribution Width 13.7 % (11.5-14.5); White Blood Count 7.3 K/mcL (4.3-11.1)
[2019-11-26 05:34] LABS: INR 1.3; Prothrombin Time 14.2 Seconds (9.4-12.1)
[2019-11-26 05:37] LABS: Activated Partial Thrombo Time 36.3 Seconds (26.0-36.0)
[2019-11-26 05:54] LABS: Potassium 3.4 mEq/L (3.5-5.1)
[2019-11-26] MEDS ORDERED: *HR* FentaNYL (PF) 100 MCG/2 ML VIAL IVP ONE (08:54)
[2019-11-26] MEDS ORDERED: *HR* Midazolam HCl 2 MG/2 ML VIAL IVP ONE (08:54)
[2019-11-26] MEDS ORDERED: Ipratropium/Albuterol Neb 3 ML IH PRN (13:58)
[2019-11-26] MEDS: Furosemide 20 MG TABLET PO SCH (18:17)
[2019-11-26] MEDS: Gabapentin 100 MG CAPSULE PO SCH ×2 (18:17→20:56)
[2019-11-26] MEDS: *HR* OxyCODONE/APAP 5/325 TABLET PO SCH (18:21)
[2019-11-26] MEDS: cloNIDine HCL 0.1 MG TABLET PO SCH (20:56)
[2019-11-26] MEDS ORDERED: traZODone 50 MG TABLET PO SCH (21:00)
[2019-11-26] MEDS ORDERED: Insulin DETEMIR 100 UNIT/ML X5UNITS SQ SCH (21:00)
[2019-11-26] MEDS: Apixaban 2.5 MG TABLET PO SCH (21:03)
[2019-11-26] MEDS: Psyllium 1 PACKET POWD.PACK PO SCH (21:03)
[2019-11-26] MEDS: Budesonide/Formoterol 80/4.5 1 PUFF INH IH SCH (22:56)
[2019-11-27] MEDS: Insulin LISPRO 300 UNITS/3 ML VIAL SQ SCH ×2 (00:37→06:06)
[2019-11-27] MEDS: *HR* OxyCODONE/APAP 5/325 TABLET PO SCH ×2 (00:37→08:56)
[2019-11-27 06:03] LABS: Basophils % 0.4 %; Eosinophils # 0.2 K/mcL (0.0-0.6); Eosinophils % 2.2 %; Hematocrit 31.7 % (35.3-44.9); Hemoglobin 9.9 g/dL (11.5-15.4); Immature Granulocytes % 0.5 % (0-4); Lymphocytes # 1.5 K/mcL (0.6-4.6); Lymphocytes % 19.5 %; Mean Corpuscular HGB Conc 31.2 g/dL (31.6-35.5); Mean Corpuscular Hemoglobin 31.3 pg (28.0-33.3); Mean Corpuscular Volume 100.3 fL (83.0-100.0); Mean Platelet Volume 9.7 fL (9.4-12.4); Monocytes # 0.4 K/mcL (0.0-1.3); Monocytes % 5.5 %; Neutrophils # 5.6 K/mcL (1.6-8.9); Platelet Count 202 K/mcL (140-400); Red Blood Count 3.16 M/mcL (3.82-4.97); Red Cell Distribution Width 13.7 % (11.5-14.5); Segmented Neutrophils % 71.9 %; White Blood Count 7.8 K/mcL (4.3-11.1)
[2019-11-27 06:08] LABS: Calcium 9.4 mg/dL (8.6-10.3); Potassium 3.5 mEq/L (3.5-5.1)
[2019-11-27] MEDS: Budesonide/Formoterol 80/4.5 1 PUFF INH IH SCH (07:40)
[2019-11-27] MEDS ORDERED: lisinopriL 5 MG TABLET PO SCH (08:00)
[2019-11-27] MEDS: Furosemide 20 MG TABLET PO SCH (08:56)
[2019-11-27] MEDS: Gabapentin 100 MG CAPSULE PO SCH (08:56)
[2019-11-27] MEDS: cloNIDine HCL 0.1 MG TABLET PO SCH (08:56)
[2019-11-27] MEDS: Psyllium 1 PACKET POWD.PACK PO SCH (08:57)
[2019-11-27] MEDS: Apixaban 2.5 MG TABLET PO SCH (08:58)
[2019-11-27] MEDS ORDERED: amLODIPine 5 MG TABLET PO SCH (09:00)
[2019-11-27] MEDS ORDERED: allopurinoL 100 MG TABLET PO SCH (09:00)
[2019-11-27] MEDS ORDERED: Cholecalciferol (D-3) 1,000 UNIT (25MCG) TABLET PO SCH (09:00)
[2019-11-27 11:08] VITALS: BP 129/81
[2019-11-27] MEDS ORDERED: Insulin LISPRO 300 UNITS/3 ML VIAL SQ SCH (16:30)
[2019-11-29] MEDS ORDERED: Cyanocobalamin (B-12) 1,000 MCG/ML VIAL IM SCH (09:00)
== END 2019-11-27 13:00 | DRG 988 ==
LOC: 3NENU → SUATTDRO 12:38
PROVIDERS: ADMIT Internal Medicine; ATTEND Family Medicine